=== PATIENT | male | born 1980 | race African-American/Black ===

== ENCOUNTER 2018-03-06 15:53 | Emergency (ER) | payer BC ==
--- NOTE | 2018-03-06 16:23 | EDM.PDOC ---
ED HPI GENERAL MEDICAL PROBLEM - General Chief Complaint: Gastrointestinal Problem Stated Complaint: needs antibotics Time Seen by Provider: 03/06/18 16:22 Source of Information: Reports: Patient History Limitations: Reports: No Limitations - History of Present Illness INITIAL COMMENTS - FREE TEXT/NARRATIVE: HISTORY AND PHYSICAL: History of present illness: Patient is a 37-year-old male here with concern for possible diverticulitis. He states he's had left lower abdominal pain 6 days, states it feels exactly the same as it did when he has had diverticulitis flares in the past. He states he is having small looser bowel movements that are nonbloody. He denies fevers, chills, nausea, vomiting, dysuria, hematuria. He is otherwise healthy and denies any significant past medical history and has no other complaints at this time. Review of systems: As per history of present illness and below otherwise all systems reviewed and negative. Past medical history: As per history of present illness and as reviewed below otherwise noncontributory. Surgical history: As per history of present illness and as reviewed below otherwise noncontributory. Social history: No reported history of drug or alcohol abuse. Family history: As per history of present illness and as reviewed below otherwise noncontributory. Physical exam: General: Patient sitting comfortably in no acute distress and nontoxic appearing HEENT: Atraumatic, normocephalic, pupils reactive, negative for conjunctival pallor or scleral icterus, mucous membranes moist, throat clear, neck supple, nontender, trachea midline. No meningeal signs. Lungs: Clear to auscultation, breath sounds equal bilaterally, chest nontender. Heart: S1S2, regular, negative for clicks, rubs, or overt murmur. Abdomen: LLQ tenderness to palpation without rigidity or guardng. Soft, nondistended. Negative for masses or hepatosplenomegaly. Negative for costovertebral tenderness. Pelvis: Stable nontender. Genitourinary: Deferred. Rectal: Deferred. Extremities: Atraumatic, negative for cords or calf pain. Neurovascular unremarkable. Neuro: Awake, alert, oriented. Cranial nerves II through XII unremarkable. Cerebellum unremarkable. Motor and sensory unremarkable throughout. Exam nonfocal. Notes: Diagnostics: CBC, CMP, UA, CT abdomen/pelvis w/ contrast Therapeutics: 1L Normal Saline IV Prescriptions: Cipro Flagyl Impression: Acute diverticulitis mid descending colon without evidence of abscess. Plan: 1. Take antibiotic as instructed 2. Follow up with primary care provider and general surgery 3. Return to ED as needed as discussed Definitive disposition and diagnosis as appropriate pending reevaluation and review of above. abdominal Pain Score (Numeric/FACES): 7 - Related Data Allergies Allergy/AdvReac Type Severity Reaction Status Date / Time No Known Allergies Allergy Verified 03/06/18 16:21 Home Meds: Home Meds Ciprofloxacin HCl [Cipro] 500 mg PO BID 10 Days #20 tablet 03/06/18 [Rx] metroNIDAZOLE [Flagyl] 500 mg PO TID 10 Days #30 tab 03/06/18 [Rx] Past Medical History Gastrointestinal History: Reports: Celiac Disease, Pancreatitis (chronic), Other (See Below) Other Gastrointestinal History: h/o diverticulitis ', intermittent abd pain, bloody stools Musculoskeletal History: Reports: None, Other (See Below) (h/o back pain extending down left leg- much better since microdiscectomy 10/25) Neurological History: Reports: None - Past Surgical History Head Surgeries/Procedures: Reports: None Neurological Surgical History: Reports: Lumbar Spine Other Neurological Surgeries/Procedures: microdisectomy Musculoskeletal Surgical History: Reports: Other (See Below) Other Musculoskeletal Surgeries/Procedures:: cyst removed from rt index finger Social & Family History - Family History Family Medical History: Unobtainable ED ROS GENERAL - Review of Systems Review Of Systems: ROS reveals no pertinent complaints other than HPI. ED EXAM, GI/ABD - Physical Exam Exam: See Below (see dictation) Course - Vital Signs Last Recorded V/S: Last Vital Signs Temp 97.5 F 03/06/18 16:19 Pulse 93 03/06/18 16:19 Resp 16 03/06/18 16:19 BP 136/93 H 03/06/18 16:19 Pulse Ox 98 03/06/18 16:19 - Orders/Labs/Meds Orders: Active Orders 24 hr Category Date Time Status Sodium Chloride 0.9% [Saline Flush] Med 03/06/18 16:27 Active 10 ml FLUSH ASDIRECTED PRN Sodium Chloride 0.9% [Saline Flush] Med 03/06/18 16:27 Active 2.5 ml FLUSH ASDIRECTED PRN Saline Lock Insert [OM.PC] Stat Oth 03/06/18 16:27 Ordered Medication Orders Sodium Chloride (Saline Flush) 10 ml FLUSH ASDIRECTED PRN PRN Reason: Keep Vein Open Last Admin: 03/06/18 16:41 Dose: 10 ml Sodium Chloride (Saline Flush) 2.5 ml FLUSH ASDIRECTED PRN PRN Reason: Keep Vein Open Last Admin: 03/06/18 16:41 Dose: 2.5 ml Labs: Laboratory Tests 03/06/18 03/06/18 03/06/18 Range/Units 16:30 16:36 16:36 WBC 9.64 (4.0-11.0) K/uL RBC 6.11 H (4.50-5.90) M/uL Hgb 16.8 (13.0-17.0) g/dL Hct 49.0 (38.0-50.0) % MCV 80.2 (80.0-98.0) fL MCH 27.5 (27.0-32.0) pg MCHC 34.3 (31.0-37.0) g/dL RDW Std Deviation 40.8 (28.0-62.0) fl RDW Coeff of Alessandro 14 (11.0-15.0) % Plt Count 191 (150-400) K/uL MPV 9.80 (7.40-12.00) fL Neut % (Auto) 79.7 (48.0-80.0) % Lymph % (Auto) 11.1 L (16.0-40.0) % [place] % (Auto) 8.6 (0.0-15.0) % Eos % (Auto) 0.4 (0.0-7.0) % Baso % (Auto) 0.2 (0.0-1.5) % Neut # (Auto) 7.7 H (1.4-5.7) K/uL Lymph # (Auto) 1.1 (0.6-2.4) K/uL [place] # (Auto) 0.8 (0.0-0.8) K/uL Eos # (Auto) 0.0 (0.0-0.7) K/uL Baso # (Auto) 0.0 (0.0-0.1) K/uL Nucleated RBC % 0.0 /100WBC Nucleated RBCs # 0 K/uL Sodium 141 (136-148) mmol/L Potassium 3.7 (3.5-5.1) mmol/L Chloride 105 (98-107) mmol/L Carbon Dioxide 22.9 (21.0-32.0) mmol/L BUN 23 H (7.0-18.0) mg/dL Creatinine 1.2 (0.8-1.3) mg/dL Est Cr Clr Drug Dosing 92.51 mL/min Estimated GFR (MDRD) > 60.0 ml/min Glucose 116 H (74-106) mg/dL Calcium 9.7 (8.5-10.1) mg/dL Total Bilirubin 0.6 (0.2-1.0) mg/dL AST 25 (15-37) IU/L ALT 68 H (14-63) IU/L Alkaline Phosphatase 51 (46-116) U/L Total Protein 8.5 H (6.4-8.2) g/dL Albumin 4.0 (3.4-5.0) g/dL Globulin 4.5 H (2.6-4.0) g/dL Albumin/Globulin Ratio 0.9 (0.9-1.6) Urine Color YELLOW Urine Appearance CLEAR Urine pH 6.0 (5.0-8.0) Ur Specific [place] 1.020 (1.001-1.035) Urine Protein NEGATIVE (NEGATIVE) mg/dL Urine Glucose (UA) NEGATIVE (NEGATIVE) mg/dL Urine Ketones NEGATIVE (NEGATIVE) mg/dL Urine Occult Blood NEGATIVE (NEGATIVE) Urine Nitrite NEGATIVE (NEGATIVE) Urine Bilirubin NEGATIVE (NEGATIVE) Urine Urobilinogen 0.2 (<2.0) EU/dL Ur Leukocyte Esterase NEGATIVE (NEGATIVE) Meds: Medications Generic Name Dose Route Start Last Admin Trade Name Freq PRN Reason Stop Dose Admin Sodium Chloride 10 ml 03/06/18 16:27 03/06/18 16:41 Saline Flush FLUSH 10 ml ASDIRECTED PRN Administration Keep Vein Open Sodium Chloride 2.5 ml 03/06/18 16:27 03/06/18 16:41 Saline Flush FLUSH 2.5 ml ASDIRECTED PRN Administration Keep Vein Open Discontinued Medications Generic Name Dose Route Start Last Admin Trade Name Freq PRN Reason Stop Dose Admin Sodium Chloride 1,000 mls @ 999 mls/hr 03/06/18 16:27 03/06/18 16:41 Normal Saline IV 03/06/18 17:27 999 mls/hr STAT ONE Administration Iopamidol 100 ml 03/06/18 17:55 03/06/18 17:56 Isovue Multipack-370 (76%) IVPUSH 03/06/18 17:56 100 ml ONETIME ONE Administration Departure - Departure Time of Disposition: 18:46 Disposition: Home, Self-Care 01 Condition: Good Clinical Impression: Diverticulitis - Discharge Information Prescriptions: Ciprofloxacin HCl [Cipro] 500 mg PO BID 10 Days #20 tablet metroNIDAZOLE [Flagyl] 500 mg PO TID 10 Days #30 tab Referrals: PCP,None [Primary Care Provider] - Forms: ED Department Discharge Additional Instructions: The following information is given to patients seen in the emergency department who are being discharged to home. This information is to outline your options for follow-up care. We provide all patients seen in our emergency department with a follow-up referral. The need for follow-up, as well as the timing and circumstances, are variable depending upon the specifics of your emergency department visit. If you don't have a primary care physician on staff, we will provide you with a referral. We always advise you to contact your personal physician following an emergency department visit to inform them of the circumstance of the visit and for follow-up with them and/or the need for any referrals to a consulting specialist. The emergency department will also refer you to a specialist when appropriate. This referral assures that you have the opportunity for follow-up care with a specialist. All of these measure are taken in an effort to provide you with optimal care, which includes your follow-up. Under all circumstances we always encourage you to contact your private physician who remains a resource for coordinating your care. When calling for follow-up care, please make the office aware that this follow-up is from your recent emergency room visit. If for any reason you are refused follow-up, please contact the [facility] Emergency Department at and asked to speak to the emergency department charge nurse. [facility] Primary [facility] [address] [place] [address] [id number] [facility] Specialty Care - General Surgery Professional Building [address] [place] [address], [address] [place] [address] 1. Take antibiotic as instructed 2. Follow up with primary care provider and general surgery 3. Return to ED as needed as discussed - My Orders Last 24 Hours: My Active Orders 03/06/18 16:27 Sodium Chloride 0.9% [Saline Flush] 10 ml FLUSH ASDIRECTED PRN Sodium Chloride 0.9% [Saline Flush] 2.5 ml FLUSH ASDIRECTED PRN Saline Lock Insert [OM.PC] Stat - Assessment/Plan Last 24 Hours: My Active Orders 03/06/18 16:27 Sodium Chloride 0.9% [Saline Flush] 10 ml FLUSH ASDIRECTED PRN Sodium Chloride 0.9% [Saline Flush] 2.5 ml FLUSH ASDIRECTED PRN Saline Lock Insert [OM.PC] Stat
[2018-03-06] MEDS ORDERED: Sodium Chloride 0.9% 2.5 ML Syringe FLUSH PRN (16:27)
[2018-03-06] MEDS ORDERED: Sodium Chloride 0.9% 1,000 ML IV ONE (16:27)
[2018-03-06] MEDS ORDERED: Sodium Chloride 0.9% 10 ML Syringe FLUSH PRN (16:27)
[2018-03-06 17:05] LABS: CHLORIDE,CL 105 mmol/L (98-107); SODIUM,NA 141 mmol/L (136-148)
[2018-03-06] MEDS ORDERED: Iopamidol 755 MG/ML 500 ML Multipack Bottle IVPUSH ONE (17:55)
--- NOTE | 2018-03-06 18:42 | CT ---
INDICATION: Left lower quadrant and mid abdominal pain for 5 days. TECHNIQUE: CT abdomen and pelvis with 100 cc Isovue 370 intravenous contrast. COMPARISON: None FINDINGS: The liver is normal in contour with a subcentimeter hypodensity within the right lobe which is too small for characterization. Statistically speaking, in the absence of a known primary malignancy this would likely represent incidental findings. Gallbladder and biliary tree are normal. At the upper pole of the spleen there is a 7 millimeter hypodensity which is too small for characterization although this likely represents a small cyst. The adrenal glands and pancreas are unremarkable. Duplication anomaly of the right kidney. Sub centimeter hypodensity at the upper pole left kidney which is too small for characterization although likely represents a cyst. No dilated loops of large or small intestine. Moderate colonic diverticulosis. Focal inflammation adjacent to the mid descending colon, possibly centered around a diverticulum. No abscess. Pelvic organs are unremarkable. Discoid atelectasis left lower lobe. IMPRESSION: 1. Acute diverticulitis mid descending colon without evidence of abscess. Please note that all CT scans at this facility use dose modulation, iterative reconstruction, and/or weight-based dosing when appropriate to reduce radiation dose to as low as reasonably achievable. Dictated by Josh Carranza MD @ Mar 06 2018 6:31PM Signed by Dr. Josh Carranza @ Mar 06 2018 6:40PM
== END 2018-03-06 18:57 | disposition home or self-care (01) ==
LOC: MW.ED 15:53
DX: K57.32 Diverticulitis of large intestine without perforation or abscess without bleeding (principal)
CPT/HCPCS: 36415; 74177; 80053; 81003; 85025; 96360; 99284; J7040; Q9967; 99283

== ENCOUNTER 2020-01-15 12:54 | Observation (INO) | payer SELFPAY ==
[2020-01-15] MEDS ORDERED: Sodium Chloride 0.9% 2.5 ML Syringe FLUSH PRN (12:55)
[2020-01-15] MEDS ORDERED: Lactated Ringers 1,000 ML IV ONE (13:32)
[2020-01-15] MEDS ORDERED: Ondansetron 4 MG/2 ML SDV IVPUSH ONE (13:32)
[2020-01-15] MEDS ORDERED: Morphine 4 MG/ML Syringe IVPUSH ONE (13:32)
--- NOTE | 2020-01-15 13:33 | EDM.PDOC ---
ED HPI GENERAL MEDICAL PROBLEM - General Stated Complaint: ABDOMINAL PAIN Time Seen by Provider: 01/15/20 12:55 Source of Information: Reports: Patient History Limitations: Reports: No Limitations - History of Present Illness INITIAL COMMENTS - FREE TEXT/NARRATIVE: 39-year-old male with history of diverticulitis presents with worsening left lower quadrant constant aching pain for 1 week. He denies fever, chills, nausea, vomiting, diarrhea, testicular pain, dysuria, flank pain. He notes her left small bowel movement yesterday. ROS: A 10-point review of systems, other than pertinent positives and negatives as stated per HPI, is otherwise negative Past medical history: No additional pertinent history Past Surgical history: No additional pertinent history Social history: No additional pertinent history Family history: No additional pertinent history PHYSICAL EXAM General: AOx4, GCS = 15, No distress HEENT: dry mucous membrane Neck: supple, no meningismus, no Kernig or Brudzinski Cardiac: S1S2 RRR Respiratory: CTAB, no crackles or rales, no wheezing Abdomen: Soft, mild left lower quadrant tenderness, no rebound or guarding, nondistended, no pulsatile mass. Back: nontender Musculoskeletal: NVI distally, no deformity Neuro: No focal deficits, CN 2 - 12 WNL. Abdominal Pain Score (Numeric/FACES): 6 - Related Data Allergies Allergy/AdvReac Type Severity Reaction Status Date / Time No Known Allergies Allergy Verified 01/15/20 13:45 Home Meds: Home Meds . [No Known Home Meds] 01/15/20 [History] Past Medical History Gastrointestinal History: Reports: Celiac Disease, Pancreatitis (chronic), Other (See Below) Other Gastrointestinal History: h/o diverticulitis ', intermittent abd pain, bloody stools Musculoskeletal History: Reports: None, Other (See Below) (h/o back pain extending down left leg- much better since microdiscectomy 10/25) Neurological History: Reports: None - Past Surgical History Head Surgeries/Procedures: Reports: None Neurological Surgical History: Reports: Lumbar Spine Other Neurological Surgeries/Procedures: microdisectomy Musculoskeletal Surgical History: Reports: Other (See Below) Other Musculoskeletal Surgeries/Procedures:: cyst removed from rt index finger Social & Family History - Family History Family Medical History: Unobtainable ED ROS GENERAL - Review of Systems Review Of Systems: See Below (see dictation) ED EXAM, GI/ABD - Physical Exam Exam: See Below (see dictation) Course - Vital Signs Last Recorded V/S: Last Vital Signs Temp 97.3 F 01/15/20 13:45 Pulse 99 01/15/20 13:45 Resp 16 01/15/20 13:45 BP 151/99 H 01/15/20 13:45 Pulse Ox 99 01/15/20 13:45 - Orders/Labs/Meds Orders: Active Orders 24 hr Category Date Time Status Patient Status [ADT] Routine ADT 01/15/20 16:56 Ordered Oxygen Therapy [RC] PRN Care 01/15/20 16:50 Ordered VTE/DVT Education [RC] PER UNIT ROUTINE Care 01/15/20 16:50 Ordered ANTITHROMBIN ACTIVITY [REF] Stat Lab 01/15/20 16:53 Ordered CORONAVIRUS COVID-19 SOFIYA [MOLEC] Stat Lab 01/15/20 16:28 Ordered FACTOR V LEIDEN MUTATION [REF] Stat Lab 01/15/20 16:49 Ordered PROTEIN C-FUNCTIONAL [REF] Stat Lab 01/15/20 16:49 Ordered PROTEIN S-FUNCTIONAL [REF] Stat Lab 01/15/20 16:49 Ordered Heparin Sodium Med 01/15/20 16:57 Once 5,000 units IVPUSH ONETIME ONE Heparin Sodium/0.45% NaCl [Heparin 25,000 Units in 1/2 Med 01/15/20 17:00 Ordered NS 500 ML] 500 ml IV TITRATE Sodium Chloride 0.9% [Saline Flush] Med 01/15/20 12:55 Active 10 ml FLUSH ASDIRECTED PRN Sodium Chloride 0.9% [Saline Flush] Med 01/15/20 12:55 Active 2.5 ml FLUSH ASDIRECTED PRN Saline Lock Insert [OM.PC] Stat Oth 01/15/20 12:55 Ordered Resuscitation Status Routine Resus Stat 01/15/20 16:50 Ordered Medication Orders Heparin Sodium (Porcine) (Heparin Sodium) 5,000 units IVPUSH ONETIME ONE Stop: 01/15/20 16:58 Heparin Sodium/Sodium Chloride (Heparin 25,000 Units In 1/2 Ns 500 Ml) 500 mls @ 35.108 mls/hr IV TITRATE NAFISA; Protocol Sodium Chloride (Saline Flush) 10 ml FLUSH ASDIRECTED PRN PRN Reason: Keep Vein Open Last Admin: 01/15/20 14:24 Dose: 10 ml Documented by: Admin: 01/15/20 14:23 Dose: 10 ml Documented by: JANE Sodium Chloride (Saline Flush) 2.5 ml FLUSH ASDIRECTED PRN PRN Reason: Keep Vein Open Labs: Laboratory Tests 01/15/20 01/15/20 01/15/20 Range/Units 13:37 13:37 13:37 WBC 8.89 (4.0-11.0) K/uL RBC 6.37 H (4.50-5.90) M/uL Hgb 17.0 (13.0-17.0) g/dL Hct 50.0 (38.0-50.0) % MCV 78.5 L (80.0-98.0) fL MCH 26.7 L (27.0-32.0) pg MCHC 34.0 (31.0-37.0) g/dL RDW Std Deviation 37.7 (28.0-62.0) fl RDW Coeff of Alessandro 13 (11.0-15.0) % Plt Count 154 (150-400) K/uL MPV 10.00 (7.40-12.00) fL Neut % (Auto) 74.5 (48.0-80.0) % Lymph % (Auto) 13.9 L (16.0-40.0) % [place] % (Auto) 11.1 (0.0-15.0) % Eos % (Auto) 0.3 (0.0-7.0) % Baso % (Auto) 0.2 (0.0-1.5) % Neut # (Auto) 6.6 H (1.4-5.7) K/uL Lymph # (Auto) 1.2 (0.6-2.4) K/uL [place] # (Auto) 1.0 H (0.0-0.8) K/uL Eos # (Auto) 0.0 (0.0-0.7) K/uL Baso # (Auto) 0.0 (0.0-0.1) K/uL Nucleated RBC % 0.0 /100WBC Nucleated RBCs # 0 K/uL INR 1.08 Lactate (0.20-2.00) mmol/L Sodium 139 (136-148) mmol/L Potassium 3.4 L (3.5-5.1) mmol/L Chloride 105 (98-107) mmol/L Carbon Dioxide 22.9 (21.0-32.0) mmol/L BUN 11 (7.0-18.0) mg/dL Creatinine 1.0 (0.8-1.3) mg/dL Est Cr Clr Drug Dosing 108.86 mL/min Estimated GFR (MDRD) > 60.0 ml/min Glucose 100 (74-106) mg/dL Calcium 9.4 (8.5-10.1) mg/dL Total Bilirubin 0.7 (0.2-1.0) mg/dL AST 20 (15-37) IU/L ALT 40 (14-63) IU/L Alkaline Phosphatase 68 (46-116) U/L Total Protein 8.2 (6.4-8.2) g/dL Albumin 3.5 (3.4-5.0) g/dL Globulin 4.7 H (2.6-4.0) g/dL Albumin/Globulin Ratio 0.7 L (0.9-1.6) Lipase 94 (73-393) U/L Urine Color Urine Appearance Urine pH (5.0-8.0) Ur Specific [place] (1.001-1.035) Urine Protein (NEGATIVE) mg/dL Urine Glucose (UA) (NEGATIVE) mg/dL Urine Ketones (NEGATIVE) mg/dL Urine Occult Blood (NEGATIVE) Urine Nitrite (NEGATIVE) Urine Bilirubin (NEGATIVE) Urine Urobilinogen (<2.0) EU/dL Ur Leukocyte Esterase (NEGATIVE) 01/15/20 01/15/20 Range/Units 14:28 16:40 WBC (4.0-11.0) K/uL RBC (4.50-5.90) M/uL Hgb (13.0-17.0) g/dL Hct (38.0-50.0) % MCV (80.0-98.0) fL MCH (27.0-32.0) pg MCHC (31.0-37.0) g/dL RDW Std Deviation (28.0-62.0) fl RDW Coeff of Alessandro (11.0-15.0) % Plt Count (150-400) K/uL MPV (7.40-12.00) fL Neut % (Auto) (48.0-80.0) % Lymph % (Auto) (16.0-40.0) % [place] % (Auto) (0.0-15.0) % Eos % (Auto) (0.0-7.0) % Baso % (Auto) (0.0-1.5) % Neut # (Auto) (1.4-5.7) K/uL Lymph # (Auto) (0.6-2.4) K/uL [place] # (Auto) (0.0-0.8) K/uL Eos # (Auto) (0.0-0.7) K/uL Baso # (Auto) (0.0-0.1) K/uL Nucleated RBC % /100WBC Nucleated RBCs # K/uL INR Lactate 1.4 (0.20-2.00) mmol/L Sodium (136-148) mmol/L Potassium (3.5-5.1) mmol/L Chloride (98-107) mmol/L Carbon Dioxide (21.0-32.0) mmol/L BUN (7.0-18.0) mg/dL Creatinine (0.8-1.3) mg/dL Est Cr Clr Drug Dosing mL/min Estimated GFR (MDRD) ml/min Glucose (74-106) mg/dL Calcium (8.5-10.1) mg/dL Total Bilirubin (0.2-1.0) mg/dL AST (15-37) IU/L ALT (14-63) IU/L Alkaline Phosphatase (46-116) U/L Total Protein (6.4-8.2) g/dL Albumin (3.4-5.0) g/dL Globulin (2.6-4.0) g/dL Albumin/Globulin Ratio (0.9-1.6) Lipase (73-393) U/L Urine Color YELLOW Urine Appearance CLEAR Urine pH 6.0 (5.0-8.0) Ur Specific [place] 1.025 (1.001-1.035) Urine Protein NEGATIVE (NEGATIVE) mg/dL Urine Glucose (UA) NEGATIVE (NEGATIVE) mg/dL Urine Ketones TRACE H (NEGATIVE) mg/dL Urine Occult Blood NEGATIVE (NEGATIVE) Urine Nitrite NEGATIVE (NEGATIVE) Urine Bilirubin NEGATIVE (NEGATIVE) Urine Urobilinogen 1.0 (<2.0) EU/dL Ur Leukocyte Esterase NEGATIVE (NEGATIVE) Meds: Medications Generic Name Dose Route Start Last Admin Trade Name Freq PRN Reason Stop Dose Admin Heparin Sodium (Porcine) 5,000 units 01/15/20 16:57 Heparin Sodium IVPUSH 01/15/20 16:58 ONETIME ONE Heparin Sodium/Sodium Chloride 500 mls @ 35.108 mls/hr 01/15/20 17:00 Heparin 25,000 Units In 1/2 Ns 500 Ml IV TITRATE NAFISA Protocol 18 UNITS/KG/HR Sodium Chloride 10 ml 01/15/20 12:55 01/15/20 14:24 Saline Flush FLUSH 10 ml ASDIRECTED PRN Administration Keep Vein Open Sodium Chloride 2.5 ml 01/15/20 12:55 Saline Flush FLUSH ASDIRECTED PRN Keep Vein Open Discontinued Medications Generic Name Dose Route Start Last Admin Trade Name Freq PRN Reason Stop Dose Admin Lactated Ringer's 1,000 mls @ 999 mls/hr 01/15/20 13:32 01/15/20 14:23 Ringers, Lactated IV 01/15/20 14:32 999 mls/hr .BOLUS ONE Administration Iopamidol 100 ml 01/15/20 15:03 01/15/20 15:04 Isovue Multipack-370 (76%) IVPUSH 01/15/20 15:04 100 ml ONETIME STA Administration Morphine Sulfate 4 mg 01/15/20 13:32 01/15/20 14:19 Morphine IVPUSH 01/15/20 13:33 4 mg ONETIME ONE Administration Ondansetron HCl 4 mg 01/15/20 13:32 01/15/20 14:17 Zofran IVPUSH 01/15/20 13:33 4 mg ONETIME ONE Administration - Re-Assessments/Exams Free Text/Narrative Re-Assessment/Exam: 01/15/20 16:[address] Gisbon, who agrees to admit patient. The hospitalist's documentation supersedes all other documentation on this patient with regard to any conflicts or discrepancies from this point forward. Any emergency conditions have been treated to the ability of the ED prior to admission. Departure - Departure Time of Disposition: 16:58 Disposition: Refer to Observation Condition: Good Clinical Impression: Portal vein thrombosis - Discharge Information *PRESCRIPTION DRUG MONITORING PROGRAM REVIEWED*: Not Applicable *COPY OF PRESCRIPTION DRUG MONITORING REPORT IN PATIENT VIGNESH: Not Applicable Instructions: Portal Vein Thrombosis Referrals: PCP,None [Primary Care Provider] - Sepsis Event Note (ED) - Focused Exam Vital Signs: Vital Signs Temp Pulse Resp BP Pulse Ox 01/15/20 13:45 97.3 F 99 16 151/99 H 99 - My Orders Last 24 Hours: My Active Orders 01/15/20 12:55 Sodium Chloride 0.9% [Saline Flush] 10 ml FLUSH ASDIRECTED PRN Sodium Chloride 0.9% [Saline Flush] 2.5 ml FLUSH ASDIRECTED PRN Saline Lock Insert [OM.PC] Stat 01/15/20 16:28 CORONAVIRUS COVID-19 SOFIYA [MOLEC] Stat 01/15/20 16:49 FACTOR V LEIDEN MUTATION [REF] Stat PROTEIN C-FUNCTIONAL [REF] Stat PROTEIN S-FUNCTIONAL [REF] Stat 01/15/20 16:50 Oxygen Therapy [RC] PRN VTE/DVT Education [RC] PER UNIT ROUTINE Resuscitation Status Routine 01/15/20 16:56 Patient Status [ADT] Routine 01/15/20 16:57 Heparin Sodium 5,000 units IVPUSH ONETIME ONE 01/15/20 17:00 Heparin Sodium/0.45% NaCl [Heparin 25,000 Units in 1/2 NS 500 ML] 500 ml IV TITRATE - Assessment/Plan Last 24 Hours: My Active Orders 01/15/20 12:55 Sodium Chloride 0.9% [Saline Flush] 10 ml FLUSH ASDIRECTED PRN Sodium Chloride 0.9% [Saline Flush] 2.5 ml FLUSH ASDIRECTED PRN Saline Lock Insert [OM.PC] Stat 01/15/20 16:28 CORONAVIRUS COVID-19 SOFIYA [MOLEC] Stat 01/15/20 16:49 FACTOR V LEIDEN MUTATION [REF] Stat PROTEIN C-FUNCTIONAL [REF] Stat PROTEIN S-FUNCTIONAL [REF] Stat 01/15/20 16:50 Oxygen Therapy [RC] PRN VTE/DVT Education [RC] PER UNIT ROUTINE Resuscitation Status Routine 01/15/20 16:56 Patient Status [ADT] Routine 01/15/20 16:57 Heparin Sodium 5,000 units IVPUSH ONETIME ONE 01/15/20 17:00 Heparin Sodium/0.45% NaCl [Heparin 25,000 Units in 1/2 NS 500 ML] 500 ml IV TITRATE
[2020-01-15] MEDS: Sodium Chloride 0.9% 10 ML Syringe FLUSH PRN ×3 (14:23→18:10)
[2020-01-15 14:26] LABS: BLOOD UREA NITROGEN,BUN 11 mg/dL (7.0-18.0); CARBON DIOXIDE,CO2 22.9 mmol/L (21.0-32.0); CHLORIDE,CL 105 mmol/L (98-107); GLUCOSE RANDOM 100 mg/dL (74-106); LIPASE 94 U/L (73-393); POTASSIUM,K 3.4 mmol/L (3.5-5.1); SODIUM,NA 139 mmol/L (136-148)
[2020-01-15] MEDS ORDERED: Iopamidol 755 MG/ML 500 ML Multipack Bottle IVPUSH STA (15:03)
--- NOTE | 2020-01-15 16:23 | CT ---
Indication: Abdominal pain left lower quadrant pain history of diverticulitis Technique: Volumetric multidetector CT images of the abdomen and pelvis were obtained after the administration of intravenous contrast. 100 cc Isovue 370 Comparison: CT abdomen and pelvis March 06, 2018 Findings: The lung bases are clear. The liver is mildly enlarged with hepatic steatosis. The portal vein demonstrates extensive portal venous thrombosis within the main portal vein and predominantly in the superior mesenteric vein. There is additional thrombosis of the splenic vein. The gallbladder is unremarkable without evidence of radiopaque calculus. There is no significant common biliary ductal dilatation or abrupt cut off. The spleen is normal in enhancement and size. The stomach and duodenum are grossly unremarkable. The pancreas is normal in enhancement without significant atrophy. The adrenal glands are unremarkable. The kidneys demonstrate preserved corticomedullary differentiation without evidence of obstructive uropathy. There is a [id number] amount of stool seen throughout the colon with colonic diverticulosis without definite evidence of diverticulitis. The appendix is unremarkable. There is mild central mesenteric edema without evidence of significant mesenteric pelvic sidewall or epigastric adenopathy. The aorta is nonaneurysmal. There is no significant atherosclerotic disease appreciated. The solid pelvic viscera are grossly unremarkable. There is no free fluid or free air. The anterior abdominal wall is intact without significant hernias. The lumbar vertebral body heights again demonstrate endplate Schmorl`s defect of the inferior L5 vertebral body otherwise the vertebral body heights are maintained in satisfactory alignment. Impression: Incidental note is made of extensive portal venous thrombosis predominantly within the main portal vein, superior mesenteric and splenic veins with moderate central mesenteric edema. There is no definite evidence of diverticulitis with redemonstration of distal colonic diverticula. Persistent hepatomegaly and hepatic steatosis. Please note that all CT scans at this facility use dose modulation, iterative reconstruction, and/or weight-based dosing when appropriate to reduce radiation dose to as low as reasonably achievable. Dictated by Julio Cesar Natarajan MD @ Jan 15 2020 3:58PM Signed by Dr. Julio Cesar Natarajan @ Jan 15 2020 4:22PM
[2020-01-15] MEDS ORDERED: Heparin Sodium 5,000 Units/ML Vial IVPUSH ONE (16:57)
[2020-01-15] MEDS: Heparin Sodium/0.45% NaCl 500 ML IV SCH (18:08)
[2020-01-15] MEDS ORDERED: Acetaminophen 325 MG Tab PO PRN (19:48)
[2020-01-15] MEDS ORDERED: Ondansetron 4 MG/2 ML SDV IVPUSH PRN (19:48)
[2020-01-15] MEDS ORDERED: Morphine 2 MG/ML SYRINGE IVPUSH PRN (19:55)
[2020-01-15] MEDS ORDERED: Potassium Chloride 10% 20 MEQ/15 ML Soln 30 ML UD Cup PO ONE (20:00)
--- NOTE | 2020-01-15 20:08 | PCM.HP.2 ---
H&P History of Present Illness - General Date of Service: 01/15/20 Admit Problem/Dx: Admission Diagnosis/Problem Admission Diagnosis/Problem Portal vein thrombosis - History of Present Illness Initial Comments - Free Text/Narative: 39-year-old male with history of diverticulitis presents with worsening left lower quadrant constant aching pain for 1 week. NO associated, fever, chills, diarrhea, N/V. Pain is dull and achy, and unlike his pain from diverticulitis. Patient underwent CT scan of abdomen which showed significant extensive portal venous thrombosis predominantly within portal vein, SMV, and splenic vein with come moderate central mesenteric edema. Patient denies fever, chills, nausea, vomiting, diarrhea, testicular pain, dysuria, flank pain. He states he has a small bowel movement yesterday, which was nonbloody. Patient was presented to me, i requested surgery consult due to extensive clot burden and possible bowel involvement. Surgery saw the patient and recommended IR consult vs transfer, IR was consulted, they reviewed the images and recommenced systemic anticoagulation with heparin gtt and repeat CT scan in 3 days. Patient was covid positive, no respiratory symptoms. Patient was admitted for further management. Abdominal Pain Score (Numeric/FACES): 6 - Related Data Allergies/Adverse Reactions: Allergies Allergy/AdvReac Type Severity Reaction Status Date / Time No Known Allergies Allergy Verified 01/15/20 13:45 Home Medications: Home Meds . [No Known Home Meds] 01/15/20 [History] Past Medical History Gastrointestinal History: Reports: Celiac Disease, Pancreatitis, Other (See Below) Other Gastrointestinal History: h/o diverticulitis '09, intermittent abd pain, bloody stools Musculoskeletal History: Reports: None, Other (See Below) Neurological History: Reports: None - Infectious Disease History Infectious Disease History: Reports: None - Past Surgical History Head Surgeries/Procedures: Reports: None Neurological Surgical History: Reports: Lumbar Spine Other Neurological Surgeries/Procedures: microdisectomy Musculoskeletal Surgical History: Reports: Other (See Below) Other Musculoskeletal Surgeries/Procedures:: cyst removed from rt index finger Social & Family History - Family History Family Medical History: Unobtainable - Tobacco Use Tobacco Use Status *Q: Never Tobacco User Second Hand Smoke Exposure: Yes - Caffeine Use Caffeine Use: Reports: Coffee - Recreational Drug Use Recreational Drug Use: No H&P Review of Systems - Review of Systems: Review Of Systems: See Below General: Denies: Fever, Chills, Malaise HEENT: Denies: Contact Lenses, Dysphasia Pulmonary: Denies: Shortness of Breath, Wheezing Cardiovascular: Denies: Chest Pain, Palpitations, Dyspnea on Exertion Gastrointestinal: Reports: Abdominal Pain. Denies: Anorexia, Black Stool, Bloody Stool, Constipation, Diarrhea, Decreased Appetite, Distension, Flatus, Hematemesis, Melena, Nausea, Vomiting Genitourinary: Denies: Dysuria, Frequency, Burning Musculoskeletal: Denies: Neck Pain, Shoulder Pain, Arm Pain Skin: Denies: Cyanosis, Jaundice, Mottled Psychiatric: Denies: Confusion, Depression Neurological: Denies: Confusion, Dizziness, Headache Hematologic/Lymphatic: Denies: Anemia, Easy Bleeding, Easy Bruising Exam - Exam Exam: See Below - Vital Signs Vital Signs: Last Vital Signs Temp 36.3 C 01/15/20 13:45 Pulse 79 01/15/20 17:46 Resp 16 01/15/20 13:45 BP 140/117 H 01/15/20 18:21 Pulse Ox 99 01/15/20 17:46 Weight: 97.522 kg - Exam Quality Assessment: No: Supplemental Oxygen General: Alert, Oriented, Cooperative Neck: Supple, Trachea Midline Lungs: Clear to Auscultation, Normal Respiratory Effort Cardiovascular: Regular Rate, Regular Rhythm, Normal S1, Normal S2 GI/Abdominal Exam: Normal Bowel Sounds, Soft, Tender. No: Hepatomegaly, Splenomegaly - Patient Data Lab Results Last 24 hrs: Laboratory Results - last 24 hr 01/15/20 01/15/20 01/15/20 Range/Units 13:37 13:37 13:37 WBC 8.89 (4.0-11.0) K/uL RBC 6.37 H (4.50-5.90) M/uL Hgb 17.0 (13.0-17.0) g/dL Hct 50.0 (38.0-50.0) % MCV 78.5 L (80.0-98.0) fL MCH 26.7 L (27.0-32.0) pg MCHC 34.0 (31.0-37.0) g/dL RDW Std Deviation 37.7 (28.0-62.0) fl RDW Coeff of Alessandro 13 (11.0-15.0) % Plt Count 154 (150-400) K/uL MPV 10.00 (7.40-12.00) fL Neut % (Auto) 74.5 (48.0-80.0) % Lymph % (Auto) 13.9 L (16.0-40.0) % Desha % (Auto) 11.1 (0.0-15.0) % Eos % (Auto) 0.3 (0.0-7.0) % Baso % (Auto) 0.2 (0.0-1.5) % Neut # (Auto) 6.6 H (1.4-5.7) K/uL Lymph # (Auto) 1.2 (0.6-2.4) K/uL Desha # (Auto) 1.0 H (0.0-0.8) K/uL Eos # (Auto) 0.0 (0.0-0.7) K/uL Baso # (Auto) 0.0 (0.0-0.1) K/uL Nucleated RBC % 0.0 /100WBC Nucleated RBCs # 0 K/uL INR 1.08 Lactate (0.20-2.00) mmol/L Sodium 139 (136-148) mmol/L Potassium 3.4 L (3.5-5.1) mmol/L Chloride 105 (98-107) mmol/L Carbon Dioxide 22.9 (21.0-32.0) mmol/L BUN 11 (7.0-18.0) mg/dL Creatinine 1.0 (0.8-1.3) mg/dL Est Cr Clr Drug Dosing 108.86 mL/min Estimated GFR (MDRD) > 60.0 ml/min Glucose 100 (74-106) mg/dL Calcium 9.4 (8.5-10.1) mg/dL Total Bilirubin 0.7 (0.2-1.0) mg/dL AST 20 (15-37) IU/L ALT 40 (14-63) IU/L Alkaline Phosphatase 68 (46-116) U/L Total Protein 8.2 (6.4-8.2) g/dL Albumin 3.5 (3.4-5.0) g/dL Globulin 4.7 H (2.6-4.0) g/dL Albumin/Globulin Ratio 0.7 L (0.9-1.6) Lipase 94 (73-393) U/L Urine Color Urine Appearance Urine pH (5.0-8.0) Ur Specific [place] (1.001-1.035) Urine Protein (NEGATIVE) mg/dL Urine Glucose (UA) (NEGATIVE) mg/dL Urine Ketones (NEGATIVE) mg/dL Urine Occult Blood (NEGATIVE) Urine Nitrite (NEGATIVE) Urine Bilirubin (NEGATIVE) Urine Urobilinogen (<2.0) EU/dL Ur Leukocyte Esterase (NEGATIVE) SARS-CoV-2 RNA (SOFIYA) (NEGATIVE) 01/15/20 01/15/20 01/15/20 Range/Units 14:28 16:40 17:03 WBC (4.0-11.0) K/uL RBC (4.50-5.90) M/uL Hgb (13.0-17.0) g/dL Hct (38.0-50.0) % MCV (80.0-98.0) fL MCH (27.0-32.0) pg MCHC (31.0-37.0) g/dL RDW Std Deviation (28.0-62.0) fl RDW Coeff of Alessandro (11.0-15.0) % Plt Count (150-400) K/uL MPV (7.40-12.00) fL Neut % (Auto) (48.0-80.0) % Lymph % (Auto) (16.0-40.0) % Desha % (Auto) (0.0-15.0) % Eos % (Auto) (0.0-7.0) % Baso % (Auto) (0.0-1.5) % Neut # (Auto) (1.4-5.7) K/uL Lymph # (Auto) (0.6-2.4) K/uL Desha # (Auto) (0.0-0.8) K/uL Eos # (Auto) (0.0-0.7) K/uL Baso # (Auto) (0.0-0.1) K/uL Nucleated RBC % /100WBC Nucleated RBCs # K/uL INR Lactate 1.4 (0.20-2.00) mmol/L Sodium (136-148) mmol/L Potassium (3.5-5.1) mmol/L Chloride (98-107) mmol/L Carbon Dioxide (21.0-32.0) mmol/L BUN (7.0-18.0) mg/dL Creatinine (0.8-1.3) mg/dL Est Cr Clr Drug Dosing mL/min Estimated GFR (MDRD) ml/min Glucose (74-106) mg/dL Calcium (8.5-10.1) mg/dL Total Bilirubin (0.2-1.0) mg/dL AST (15-37) IU/L ALT (14-63) IU/L Alkaline Phosphatase (46-116) U/L Total Protein (6.4-8.2) g/dL Albumin (3.4-5.0) g/dL Globulin (2.6-4.0) g/dL Albumin/Globulin Ratio (0.9-1.6) Lipase (73-393) U/L Urine Color YELLOW Urine Appearance CLEAR Urine pH 6.0 (5.0-8.0) Ur Specific [place] 1.025 (1.001-1.035) Urine Protein NEGATIVE (NEGATIVE) mg/dL Urine Glucose (UA) NEGATIVE (NEGATIVE) mg/dL Urine Ketones TRACE H (NEGATIVE) mg/dL Urine Occult Blood NEGATIVE (NEGATIVE) Urine Nitrite NEGATIVE (NEGATIVE) Urine Bilirubin NEGATIVE (NEGATIVE) Urine Urobilinogen 1.0 (<2.0) EU/dL Ur Leukocyte Esterase NEGATIVE (NEGATIVE) SARS-CoV-2 RNA (SOFIYA) POSITIVE H (NEGATIVE) Result Diagrams: 01/15/20 13:37 01/15/20 13:37 Sepsis Event Note - Evaluation Sepsis Screening Result: No Definite Risk - Focused Exam Vital Signs: Vital Signs Temp Pulse Resp BP Pulse Ox 01/15/20 18:21 140/117 H 01/15/20 17:46 79 127/79 99 01/15/20 16:46 80 129/86 98 01/15/20 16:16 78 138/84 99 01/15/20 15:58 79 127/67 97 01/15/20 15:16 86 143/100 H 98 01/15/20 14:46 77 135/82 97 01/15/20 13:45 36.3 C 99 16 151/99 H 99 - Problem List (1) COVID-19 SNOMED Code(s): 630208184 ICD Code: U07.1 - COVID-19 Status: Acute Current Visit: Yes (2) Portal vein thrombosis SNOMED Code(s): 11055960 ICD Code: I81 - PORTAL VEIN THROMBOSIS Status: Acute Current Visit: Yes (3) Abdominal pain SNOMED Code(s): 61212039 ICD Code: R10.9 - UNSPECIFIED ABDOMINAL PAIN Status: Acute Current Visit: Yes Problem List Initiated/Reviewed/Updated: Yes Orders Last 24hrs: Active Orders 24 hr Category Date Time Status Patient Status [ADT] Routine ADT 01/15/20 16:56 Active Ambulate [RC] ASDIRECTED Care 01/15/20 19:48 Active Antiembolic Devices [RC] PER UNIT ROUTINE Care 01/15/20 19:50 Active Oxygen Therapy [RC] PRN Care 01/15/20 16:50 Active Oxygen Therapy [RC] PRN Care 01/15/20 19:49 Active Pulse Oximetry [RC] PRN Care 01/15/20 19:49 Active VTE/DVT Education [RC] PER UNIT ROUTINE Care 01/15/20 16:50 Active VTE/DVT Education [RC] PER UNIT ROUTINE Care 01/15/20 19:49 Active Vital Signs [RC] Q4H Care 01/15/20 19:49 Active Regular Diet [DIET] Diet 01/15/20 Dinner Active ANTITHROMBIN ACTIVITY [REF] Stat Lab 01/15/20 17:15 Received BMP [BASIC METABOLIC PANEL,BMP] [CHEM] AM Lab 01/16/20 05:11 Ordered CBC WITH AUTO DIFF [HEME] AM Lab 01/16/20 05:11 Ordered FACTOR V LEIDEN MUTATION [REF] Stat Lab 01/15/20 17:15 Received GLYCOSYLATED HEMOGLOBIN,HGBA1C [CHEM] Routine Lab 01/15/20 16:40 Received LIPID PANEL [CHEM] AM Lab 01/16/20 05:11 Ordered MAGNESIUM [CHEM] AM Lab 01/16/20 05:11 Ordered PHOSPHORUS [CHEM] AM Lab 01/16/20 05:11 Ordered PROTEIN C-FUNCTIONAL [REF] Stat Lab 01/15/20 17:15 Received PROTEIN S-FUNCTIONAL [REF] Stat Lab 01/15/20 17:15 Received TSH [CHEM] Routine Lab 01/15/20 16:40 Received Acetaminophen [TylenoL] Med 01/15/20 19:48 Active 650 mg PO Q4H PRN Heparin Sodium/0.45% NaCl [Heparin 25,000 Units in 1/2 Med 01/15/20 17:00 Active NS 500 ML] 500 ml IV TITRATE Lactated Ringers [Ringers, Lactated] 1,000 ml Med 01/15/20 20:00 Active IV ASDIRECTED Morphine Med 01/15/20 19:55 Active 1 mg IVPUSH Q4H PRN Ondansetron [Zofran] Med 01/15/20 19:48 Active 4 mg IVPUSH Q4H PRN Sodium Chloride 0.9% [Saline Flush] Med 01/15/20 12:55 Active 10 ml FLUSH ASDIRECTED PRN Sodium Chloride 0.9% [Saline Flush] Med 01/15/20 12:55 Active 2.5 ml FLUSH ASDIRECTED PRN Saline Lock Insert [OM.PC] Stat Oth 01/15/20 12:55 Ordered Sequential Compression Device [OM.PC] Per Unit Routine Oth 01/15/20 19:49 Ordered Resuscitation Status Routine Resus Stat 01/15/20 16:50 Ordered Medication Orders Acetaminophen (Tylenol) 650 mg PO Q4H PRN PRN Reason: Pain (Mild 1-3)/fever Heparin Sodium/Sodium Chloride (Heparin 25,000 Units In 1/2 Ns 500 Ml) 500 mls @ 35.108 mls/hr IV TITRATE NAFISA; Protocol Last Admin: 01/15/20 18:08 Dose: 18 units/kg/hr, 35.108 mls/hr Documented by: MIKE Cosigned by: [id number] Lactated Ringer's (Ringers, Lactated) 1,000 mls @ 125 mls/hr IV ASDIRECTED NAFISA Morphine Sulfate (Morphine) 1 mg IVPUSH Q4H PRN PRN Reason: Pain Ondansetron HCl (Zofran) 4 mg IVPUSH Q4H PRN PRN Reason: Nausea/Vomiting Sodium Chloride (Saline Flush) 10 ml FLUSH ASDIRECTED PRN PRN Reason: Keep Vein Open Last Admin: 01/15/20 18:10 Dose: 10 ml Documented by: Admin: 01/15/20 14:24 Dose: 10 ml Documented by: Admin: 01/15/20 14:23 Dose: 10 ml Documented by: JANE Sodium Chloride (Saline Flush) 2.5 ml FLUSH ASDIRECTED PRN PRN Reason: Keep Vein Open Last Admin: 01/15/20 18:10 Dose: 2.5 ml Documented by: MIKE Assessment/Plan Comment:: 39 y/o M admitted for abdominal apin sec to extensive portal venous thrombosis No prior h/o blots Likely secondary to COVID-19 f/u Coagulation disorder work up , it was requested before heparin was started cont heparin gtt Morphine for pain Monitor for worsening abdominal pain, or GI bleeding, has mild nose bleed which has stopped IV PPI Monitor and replete electrolytes Soft diet
[2020-01-15 20:17] LABS: HEMOGLOBIN A1C 5.9 %
[2020-01-15] MEDS: Lactated Ringers 1,000 ML IV SCH (20:56)
[2020-01-16] MEDS ORDERED: LORazepam 2 MG/ML SDV IVPUSH PRN (01:20)
[2020-01-16] MEDS: Pantoprazole 40 MG in Sodium Chloride 0.9% 10 ML IV SCH ×2 (01:44→23:11)
[2020-01-16 05:36] LABS: BLOOD UREA NITROGEN,BUN 9 mg/dL (7.0-18.0); CARBON DIOXIDE,CO2 24.7 mmol/L (21.0-32.0); CHLORIDE,CL 105 mmol/L (98-107); GLUCOSE RANDOM 108 mg/dL (74-106); POTASSIUM,K 3.5 mmol/L (3.5-5.1); SODIUM,NA 139 mmol/L (136-148)
--- NOTE | 2020-01-16 07:56 | CONS ---
DATE OF CONSULTATION: 01/15/2020 DATE OF : 1980 PRIMARY CARE PHYSICIAN: None PCP HISTORY OF PRESENT ILLNESS: The patient is a pleasant 39-year-old gentleman, who says for the past week, he has had some vague left lower abdominal pain, although he says sometimes it may feel more diffuse. He says the pain is more of a discomfort. It just makes it hard to get comfortable than an actual pain. He almost did not come in for it, but it has been going on for a week. He denies any nausea or vomiting, denies any changes to his bowel habits, denies any fevers or chills, and denies shortness of breath, coughing, or wheezing. He did have a CT scan done, which showed extensive portal vein thrombosis within the main portal vein and predominantly in the superior mesenteric vein. Also, there is additional thrombus in the splenic vein with also some mild mesenteric edema. The patient says he does have a history of diverticulitis in the past. He says that pain was similar but a bit different. He thought maybe that was what he was actually having a diverticulitis episode. The CT scan did not show any signs of diverticulitis. The patient also tested positive for COVID. The patient denies any bleeding issues or blood clotting issues and denies any family history or any immunological disorders. PAST MEDICAL HISTORY: History of diverticulitis. CURRENT HOME MEDICATIONS: None. ALLERGIES: No known drug allergies. PAST SURGICAL HISTORY: Lower back surgery. FAMILY HISTORY: Mother with lung cancer. SOCIAL HISTORY: 1. The patient denies any tobacco use. 2. He does smoke marijuana. 3. He does have 1 or 2 beers daily. REVIEW OF SYSTEMS: A complete 12-plus review of systems was done and was negative, except for what is in the HPI. LABORATORIES: White cell count is 8.89, hemoglobin is 17, and platelet count is 154. INR is 1.08. Lactic acid 1.4. Sodium 139, potassium 3.4, chloride 105, BUN 11, creatinine 1, and glucose is 100. Total bilirubin 0.7, AST 20, ALT is 40, and alkaline phosphatase is 68. Again, COVID is positive. IMAGING: As per HPI. PHYSICAL EXAMINATION: GENERAL: The patient is sitting comfortably in his ER bed. He is alert and oriented and in no acute distress. VITAL SIGNS: Temperature is 97.3, pulse is 99, blood pressure is 151/99, and saturating 99% on room air. ABDOMEN: Soft and nondistended. He has some very mild vague tenderness to deep palpation. No rebound. No guarding. NEUROLOGICAL: Grossly, motor is intact. No gross deficits. ASSESSMENT AND PLAN: The patient is a pleasant 39-year-old gentleman, who has thrombosis of his portal vein, mesenteric vein, and splenic vein. He has had some vague abdominal discomfort for the past week. I did talk to the hospitalist, Dr. Gibson. I did tell her he currently does not need any acute surgery. I went over that treatment of this is usually hydration and anticoagulation. However, with the extensiveness of this clot, he potentially might benefit from Interventional Radiology. They might want to consult them to see if they could be any further help. Surgery will continue to follow if the patient is admitted. I again did speak with the emergency room physician and the hospitalist extensively. The patient is also being worked up for other hypercoagulable states, although potentially, the source of blood clot might be his coronavirus disease. CIELO / HITESH /[id number] JANENE
[2020-01-16] MEDS: Heparin Sodium/0.45% NaCl 500 ML IV SCH (08:44)
[2020-01-16] MEDS ORDERED: Heparin Sodium 5,000 Units/ML Vial IVPUSH ONE (11:42)
[2020-01-16] MEDS: Lactated Ringers 1,000 ML IV SCH ×2 (13:25→21:15)
[2020-01-16] MEDS ORDERED: Warfarin 10 MG Tab PO SCH (14:00)
--- NOTE | 2020-01-16 14:30 | PCM.PN ---
<Wilfred Taveras - Last Filed: 01/16/20 14:34> - General Info Date of Service: 01/16/20 Subjective Update: Patient states that he feels fine this morning. Denies any abdominal pain, nausea, vomiting, fever, chills. Patient denies any shortness of breath, chest pain. - Review of Systems General: Denies: Fever, Chills Pulmonary: Denies: Shortness of Breath Cardiovascular: Denies: Chest Pain, Palpitations, Dyspnea on Exertion Gastrointestinal: Denies: Abdominal Pain, Nausea, Vomiting Neurological: Denies: Confusion, Dizziness, Headache - Patient Data Vitals - Most Recent: Last Vital Signs Temp 97.8 F 01/16/20 12:32 Pulse 65 01/16/20 12:32 Resp 18 01/16/20 12:32 BP 139/90 01/16/20 12:32 Pulse Ox 97 01/16/20 12:32 Weight - Most Recent: 86.999 kg I&O - Last 24 Hours: Intake & Output 01/15/20 01/16/20 01/16/20 22:59 06:59 14:59 Intake Total 3160 Balance 3160 Lab Results Last 24 Hours: Laboratory Results - last 24 hr 01/15/20 01/15/20 01/15/20 Range/Units 13:37 14:28 16:40 WBC (4.0-11.0) K/uL RBC (4.50-5.90) M/uL Hgb (13.0-17.0) g/dL Hct (38.0-50.0) % MCV (80.0-98.0) fL MCH (27.0-32.0) pg MCHC (31.0-37.0) g/dL RDW Std Deviation (28.0-62.0) fl RDW Coeff of Alessandro (11.0-15.0) % Plt Count (150-400) K/uL MPV (7.40-12.00) fL Neut % (Auto) (48.0-80.0) % Lymph % (Auto) (16.0-40.0) % [place] % (Auto) (0.0-15.0) % Eos % (Auto) (0.0-7.0) % Baso % (Auto) (0.0-1.5) % Neut # (Auto) (1.4-5.7) K/uL Lymph # (Auto) (0.6-2.4) K/uL [place] # (Auto) (0.0-0.8) K/uL Eos # (Auto) (0.0-0.7) K/uL Baso # (Auto) (0.0-0.1) K/uL Nucleated RBC % /100WBC Nucleated RBCs # K/uL APTT (18.6-31.3) SEC Lactate 1.4 (0.20-2.00) mmol/L Sodium 139 (136-148) mmol/L Potassium 3.4 L (3.5-5.1) mmol/L Chloride 105 (98-107) mmol/L Carbon Dioxide 22.9 (21.0-32.0) mmol/L BUN 11 (7.0-18.0) mg/dL Creatinine 1.0 (0.8-1.3) mg/dL Est Cr Clr Drug Dosing 108.86 mL/min Estimated GFR (MDRD) > 60.0 ml/min Glucose 100 (74-106) mg/dL Calcium 9.4 (8.5-10.1) mg/dL Phosphorus (2.6-4.7) mg/dL Magnesium (1.8-2.4) mg/dL Total Bilirubin 0.7 (0.2-1.0) mg/dL AST 20 (15-37) IU/L ALT 40 (14-63) IU/L Alkaline Phosphatase 68 (46-116) U/L Total Protein 8.2 (6.4-8.2) g/dL Albumin 3.5 (3.4-5.0) g/dL Globulin 4.7 H (2.6-4.0) g/dL Albumin/Globulin Ratio 0.7 L (0.9-1.6) Triglycerides (0-200) mg/dL Cholesterol (50-200) mg/dL LDL Cholesterol, Calc (60-180) mg/dL VLDL Cholesterol (5-55) mg/dL HDL Cholesterol (40-60) mg/dL Cholesterol/HDL Ratio (3.3-6.0) Lipase 94 (73-393) U/L TSH 3rd Generation (0.36-3.74) uIU/mL Urine Color YELLOW Urine Appearance CLEAR Urine pH 6.0 (5.0-8.0) Ur Specific [place] 1.025 (1.001-1.035) Urine Protein NEGATIVE (NEGATIVE) mg/dL Urine Glucose (UA) NEGATIVE (NEGATIVE) mg/dL Urine Ketones TRACE H (NEGATIVE) mg/dL Urine Occult Blood NEGATIVE (NEGATIVE) Urine Nitrite NEGATIVE (NEGATIVE) Urine Bilirubin NEGATIVE (NEGATIVE) Urine Urobilinogen 1.0 (<2.0) EU/dL Ur Leukocyte Esterase NEGATIVE (NEGATIVE) SARS-CoV-2 RNA (SOFIYA) (NEGATIVE) 01/15/20 01/15/20 01/15/20 Range/Units 16:40 17:03 23:05 WBC (4.0-11.0) K/uL RBC (4.50-5.90) M/uL Hgb (13.0-17.0) g/dL Hct (38.0-50.0) % MCV (80.0-98.0) fL MCH (27.0-32.0) pg MCHC (31.0-37.0) g/dL RDW Std Deviation (28.0-62.0) fl RDW Coeff of Alessandro (11.0-15.0) % Plt Count (150-400) K/uL MPV (7.40-12.00) fL Neut % (Auto) (48.0-80.0) % Lymph % (Auto) (16.0-40.0) % [place] % (Auto) (0.0-15.0) % Eos % (Auto) (0.0-7.0) % Baso % (Auto) (0.0-1.5) % Neut # (Auto) (1.4-5.7) K/uL Lymph # (Auto) (0.6-2.4) K/uL [place] # (Auto) (0.0-0.8) K/uL Eos # (Auto) (0.0-0.7) K/uL Baso # (Auto) (0.0-0.1) K/uL Nucleated RBC % /100WBC Nucleated RBCs # K/uL APTT 61.9 H (18.6-31.3) SEC Lactate (0.20-2.00) mmol/L Sodium (136-148) mmol/L Potassium (3.5-5.1) mmol/L Chloride (98-107) mmol/L Carbon Dioxide (21.0-32.0) mmol/L BUN (7.0-18.0) mg/dL Creatinine (0.8-1.3) mg/dL Est Cr Clr Drug Dosing mL/min Estimated GFR (MDRD) ml/min Glucose (74-106) mg/dL Calcium (8.5-10.1) mg/dL Phosphorus (2.6-4.7) mg/dL Magnesium (1.8-2.4) mg/dL Total Bilirubin (0.2-1.0) mg/dL AST (15-37) IU/L ALT (14-63) IU/L Alkaline Phosphatase (46-116) U/L Total Protein (6.4-8.2) g/dL Albumin (3.4-5.0) g/dL Globulin (2.6-4.0) g/dL Albumin/Globulin Ratio (0.9-1.6) Triglycerides (0-200) mg/dL Cholesterol (50-200) mg/dL LDL Cholesterol, Calc (60-180) mg/dL VLDL Cholesterol (5-55) mg/dL HDL Cholesterol (40-60) mg/dL Cholesterol/HDL Ratio (3.3-6.0) Lipase (73-393) U/L TSH 3rd Generation 1.13 (0.36-3.74) uIU/mL Urine Color Urine Appearance Urine pH (5.0-8.0) Ur Specific [place] (1.001-1.035) Urine Protein (NEGATIVE) mg/dL Urine Glucose (UA) (NEGATIVE) mg/dL Urine Ketones (NEGATIVE) mg/dL Urine Occult Blood (NEGATIVE) Urine Nitrite (NEGATIVE) Urine Bilirubin (NEGATIVE) Urine Urobilinogen (<2.0) EU/dL Ur Leukocyte Esterase (NEGATIVE) SARS-CoV-2 RNA (SOFIYA) POSITIVE H (NEGATIVE) 01/16/20 01/16/20 01/16/20 Range/Units 04:08 04:08 04:08 WBC 6.57 (4.0-11.0) K/uL RBC 5.91 H (4.50-5.90) M/uL Hgb 15.7 (13.0-17.0) g/dL Hct 46.0 (38.0-50.0) % MCV 77.8 L (80.0-98.0) fL MCH 26.6 L (27.0-32.0) pg MCHC 34.1 (31.0-37.0) g/dL RDW Std Deviation 37.3 (28.0-62.0) fl RDW Coeff of Alessandro 13 (11.0-15.0) % Plt Count 143 L (150-400) K/uL MPV 9.90 (7.40-12.00) fL Neut % (Auto) 62.1 (48.0-80.0) % Lymph % (Auto) 22.8 (16.0-40.0) % [place] % (Auto) 13.7 (0.0-15.0) % Eos % (Auto) 0.9 (0.0-7.0) % Baso % (Auto) 0.5 (0.0-1.5) % Neut # (Auto) 4.1 (1.4-5.7) K/uL Lymph # (Auto) 1.5 (0.6-2.4) K/uL [place] # (Auto) 0.9 H (0.0-0.8) K/uL Eos # (Auto) 0.1 (0.0-0.7) K/uL Baso # (Auto) 0.0 (0.0-0.1) K/uL Nucleated RBC % 0.0 /100WBC Nucleated RBCs # 0 K/uL APTT 71.3 H (18.6-31.3) SEC Lactate (0.20-2.00) mmol/L Sodium 139 (136-148) mmol/L Potassium 3.5 (3.5-5.1) mmol/L Chloride 105 (98-107) mmol/L Carbon Dioxide 24.7 (21.0-32.0) mmol/L BUN 9 (7.0-18.0) mg/dL Creatinine 0.9 (0.8-1.3) mg/dL Est Cr Clr Drug Dosing 120.95 mL/min Estimated GFR (MDRD) > 60.0 ml/min Glucose 108 H (74-106) mg/dL Calcium 8.6 (8.5-10.1) mg/dL Phosphorus 2.8 (2.6-4.7) mg/dL Magnesium 2.1 (1.8-2.4) mg/dL Total Bilirubin (0.2-1.0) mg/dL AST (15-37) IU/L ALT (14-63) IU/L Alkaline Phosphatase (46-116) U/L Total Protein (6.4-8.2) g/dL Albumin (3.4-5.0) g/dL Globulin (2.6-4.0) g/dL Albumin/Globulin Ratio (0.9-1.6) Triglycerides 72 (0-200) mg/dL Cholesterol 174 (50-200) mg/dL LDL Cholesterol, Calc 108 (60-180) mg/dL VLDL Cholesterol 14 (5-55) mg/dL HDL Cholesterol 52 (40-60) mg/dL Cholesterol/HDL Ratio 3.3 (3.3-6.0) Lipase (73-393) U/L TSH 3rd Generation (0.36-3.74) uIU/mL Urine Color Urine Appearance Urine pH (5.0-8.0) Ur Specific [place] (1.001-1.035) Urine Protein (NEGATIVE) mg/dL Urine Glucose (UA) (NEGATIVE) mg/dL Urine Ketones (NEGATIVE) mg/dL Urine Occult Blood (NEGATIVE) Urine Nitrite (NEGATIVE) Urine Bilirubin (NEGATIVE) Urine Urobilinogen (<2.0) EU/dL Ur Leukocyte Esterase (NEGATIVE) SARS-CoV-2 RNA (SOFIYA) (NEGATIVE) 01/16/20 Range/Units 10:26 WBC (4.0-11.0) K/uL RBC (4.50-5.90) M/uL Hgb (13.0-17.0) g/dL Hct (38.0-50.0) % MCV (80.0-98.0) fL MCH (27.0-32.0) pg MCHC (31.0-37.0) g/dL RDW Std Deviation (28.0-62.0) fl RDW Coeff of Alessandro (11.0-15.0) % Plt Count (150-400) K/uL MPV (7.40-12.00) fL Neut % (Auto) (48.0-80.0) % Lymph % (Auto) (16.0-40.0) % [place] % (Auto) (0.0-15.0) % Eos % (Auto) (0.0-7.0) % Baso % (Auto) (0.0-1.5) % Neut # (Auto) (1.4-5.7) K/uL Lymph # (Auto) (0.6-2.4) K/uL [place] # (Auto) (0.0-0.8) K/uL Eos # (Auto) (0.0-0.7) K/uL Baso # (Auto) (0.0-0.1) K/uL Nucleated RBC % /100WBC Nucleated RBCs # K/uL APTT 47.1 H (18.6-31.3) SEC Lactate (0.20-2.00) mmol/L Sodium (136-148) mmol/L Potassium (3.5-5.1) mmol/L Chloride (98-107) mmol/L Carbon Dioxide (21.0-32.0) mmol/L BUN (7.0-18.0) mg/dL Creatinine (0.8-1.3) mg/dL Est Cr Clr Drug Dosing mL/min Estimated GFR (MDRD) ml/min Glucose (74-106) mg/dL Calcium (8.5-10.1) mg/dL Phosphorus (2.6-4.7) mg/dL Magnesium (1.8-2.4) mg/dL Total Bilirubin (0.2-1.0) mg/dL AST (15-37) IU/L ALT (14-63) IU/L Alkaline Phosphatase (46-116) U/L Total Protein (6.4-8.2) g/dL Albumin (3.4-5.0) g/dL Globulin (2.6-4.0) g/dL Albumin/Globulin Ratio (0.9-1.6) Triglycerides (0-200) mg/dL Cholesterol (50-200) mg/dL LDL Cholesterol, Calc (60-180) mg/dL VLDL Cholesterol (5-55) mg/dL HDL Cholesterol (40-60) mg/dL Cholesterol/HDL Ratio (3.3-6.0) Lipase (73-393) U/L TSH 3rd Generation (0.36-3.74) uIU/mL Urine Color Urine Appearance Urine pH (5.0-8.0) Ur Specific [place] (1.001-1.035) Urine Protein (NEGATIVE) mg/dL Urine Glucose (UA) (NEGATIVE) mg/dL Urine Ketones (NEGATIVE) mg/dL Urine Occult Blood (NEGATIVE) Urine Nitrite (NEGATIVE) Urine Bilirubin (NEGATIVE) Urine Urobilinogen (<2.0) EU/dL Ur Leukocyte Esterase (NEGATIVE) SARS-CoV-2 RNA (SOFIYA) (NEGATIVE) Med Orders - Current: Current Medications Acetaminophen (Tylenol) 650 mg PO Q4H PRN PRN Reason: Pain (Mild 1-3)/fever Heparin Sodium/Sodium Chloride (Heparin 25,000 Units In 1/2 Ns 500 Ml) 500 mls @ 35.108 mls/hr IV TITRATE NAFISA; Protocol Last Titration: 01/16/20 11:59 Dose: 18 units/kg/hr, 35.108 mls/hr Documented by: Lactated Ringer's (Ringers, Lactated) 1,000 mls @ 125 mls/hr IV ASDIRECTED NAFISA Last Admin: 01/16/20 13:25 Dose: 125 mls/hr Documented by: Pantoprazole Sodium 40 mg/ (Sodium Chloride) 10 mls @ 300 mls/hr IV Q24H NAFISA Last Admin: 01/16/20 01:44 Dose: 300 mls/hr Documented by: Lorazepam (Ativan) 1 mg IVPUSH ONETIME PRN PRN Reason: Insomnia Last Admin: 01/16/20 01:44 Dose: 1 mg Documented by: Morphine Sulfate (Morphine) 1 mg IVPUSH Q4H PRN PRN Reason: Pain Last Admin: 01/15/20 21:40 Dose: 1 mg Documented by: Ondansetron HCl (Zofran) 4 mg IVPUSH Q4H PRN PRN Reason: Nausea/Vomiting Last Admin: 01/15/20 22:09 Dose: 4 mg Documented by: Sodium Chloride (Saline Flush) 10 ml FLUSH ASDIRECTED PRN PRN Reason: Keep Vein Open Last Admin: 01/15/20 18:10 Dose: 10 ml Documented by: Sodium Chloride (Saline Flush) 2.5 ml FLUSH ASDIRECTED PRN PRN Reason: Keep Vein Open Last Admin: 01/15/20 18:10 Dose: 2.5 ml Documented by: Warfarin Sodium (Coumadin Ask) 1 each PO DAILY@1400 [facility] Discontinued Medications Heparin Sodium (Porcine) (Heparin Sodium) 5,000 units IVPUSH ONETIME ONE Stop: 01/15/20 16:58 Last Admin: 01/15/20 18:08 Dose: 5,000 units Documented by: Heparin Sodium (Porcine) (Heparin Sodium) 1,500 units IVPUSH .BOLUS ONE Stop: 01/16/20 11:43 Last Admin: 01/16/20 11:56 Dose: 1,500 units Documented by: Lactated Ringer's (Ringers, Lactated) 1,000 mls @ 999 mls/hr IV .BOLUS ONE Stop: 01/15/20 14:32 Last Admin: 01/15/20 14:23 Dose: 999 mls/hr Documented by: Iopamidol (Isovue Multipack-370 (76%)) 100 ml IVPUSH ONETIME STA Stop: 01/15/20 15:04 Last Admin: 01/15/20 15:04 Dose: 100 ml Documented by: Morphine Sulfate (Morphine) 4 mg IVPUSH ONETIME ONE Stop: 01/15/20 13:33 Last Admin: 01/15/20 14:19 Dose: 4 mg Documented by: Ondansetron HCl (Zofran) 4 mg IVPUSH ONETIME ONE Stop: 01/15/20 13:33 Last Admin: 01/15/20 14:17 Dose: 4 mg Documented by: Potassium Chloride (Potassium Chloride) 40 meq PO ONETIME ONE Stop: 01/15/20 20:01 Last Admin: 01/15/20 20:29 Dose: 40 meq Documented by: Warfarin Sodium (Coumadin) 10 mg PO 01/16/20@1400 [facility] Stop: 01/16/20 14:01 - Exam General: Alert, Oriented Lungs: Clear to Auscultation, Normal Respiratory Effort Cardiovascular: Regular Rate, Regular Rhythm GI/Abdominal Exam: Normal Bowel Sounds, Soft, Non-Tender Extremities: No Pedal Edema Psy/Mental Status: Alert Sepsis Event Note - Evaluation Sepsis Screening Result: No Definite Risk - Focused Exam Vital Signs: Vital Signs Temp Pulse Resp BP Pulse Ox 01/16/20 12:32 97.8 F 65 18 139/90 97 01/16/20 08:50 97.5 F 81 16 160/88 H 99 01/16/20 04:00 97.2 F 74 18 157/92 H 100 - Problem List & Annotations (1) Abdominal pain SNOMED Code(s): 24481356 Code(s): R10.9 - UNSPECIFIED ABDOMINAL PAIN Status: Acute (2) COVID-19 SNOMED Code(s): 896242666 Code(s): U07.1 - COVID-19 Status: Acute (3) Portal vein thrombosis SNOMED Code(s): 42022439 Code(s): I81 - PORTAL VEIN THROMBOSIS Status: Acute (4) Diverticulitis SNOMED Code(s): 998671809 Code(s): K57.92 - DVTRCLI OF INTEST, PART UNSP, W/O PERF OR ABSCESS W/O BLEED Status: Acute - Problem List Review Problem List Initiated/Reviewed/Updated: Yes - Plan Plan:: Portal venous thrombosis, 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 We will continue patient's heparin GTT therapy and repeat CT scan in 3 days. Covidpatient did test positive for Covid but has no current respiratory symptoms and is between 99-100% oxygen saturation on room air. At this time does not require remdesivir, dexamethasone. Will gear changer as needed. <Boone Gibson - Last Filed: 01/20/20 19:05> - Patient Data Vitals - Most Recent: Last Vital Signs Temp 36.2 C 01/18/20 12:00 Pulse 80 01/18/20 12:00 Resp 18 01/18/20 12:00 BP 156/97 H 01/18/20 12:00 Pulse Ox 99 01/18/20 12:00 Med Orders - Current: Current Medications Discontinued Medications Acetaminophen (Tylenol) 650 mg PO Q4H PRN PRN Reason: Pain (Mild 1-3)/fever Enoxaparin Sodium (Lovenox) 90 mg SUBCUT Q12H NAFISA Enoxaparin Sodium (Lovenox) Confirm Administered Dose 150 mg .ROUTE .STK-MED ONE Stop: 01/18/20 12:04 Last Admin: 01/18/20 12:15 Dose: 120 mg Documented by: Enoxaparin Sodium (Lovenox) 120 mg SUBCUT Q24H NAFISA Heparin Sodium (Porcine) (Heparin Sodium) 5,000 units IVPUSH ONETIME ONE Stop: 01/15/20 16:58 Last Admin: 01/15/20 18:08 Dose: 5,000 units Documented by: Heparin Sodium (Porcine) (Heparin Sodium) 1,500 units IVPUSH .BOLUS ONE Stop: 01/16/20 11:43 Last Admin: 01/16/20 11:56 Dose: 1,500 units Documented by: Lactated Ringer's (Ringers, Lactated) 1,000 mls @ 999 mls/hr IV .BOLUS ONE Stop: 01/15/20 14:32 Last Admin: 01/15/20 14:23 Dose: 999 mls/hr Documented by: Heparin Sodium/Sodium Chloride (Heparin 25,000 Units In 1/2 Ns 500 Ml) 500 mls @ 35.108 mls/hr IV TITRATE NAFISA; Protocol Last Titration: 01/18/20 05:15 Dose: 16 units/kg/hr, 31.207 mls/hr Documented by: Lactated Ringer's (Ringers, Lactated) 1,000 mls @ 125 mls/hr IV ASDIRECTED NAFISA Last Admin: 01/17/20 23:20 Dose: 125 mls/hr Documented by: Pantoprazole Sodium 40 mg/ (Sodium Chloride) 10 mls @ 300 mls/hr IV Q24H [facility] Last Admin: 01/18/20 00:32 Dose: Not Given Documented by: Iopamidol (Isovue Multipack-370 (76%)) 100 ml IVPUSH ONETIME STA Stop: 01/15/20 15:04 Last Admin: 01/15/20 15:04 Dose: 100 ml Documented by: Iopamidol (Isovue Multipack-370 (76%)) 100 ml IVPUSH ONETIME ONE Stop: 01/18/20 08:32 Last Admin: 01/18/20 08:32 Dose: 100 ml Documented by: Lorazepam (Ativan) 1 mg IVPUSH ONETIME PRN PRN Reason: Insomnia Last Admin: 01/16/20 01:44 Dose: 1 mg Documented by: Lorazepam (Ativan) 1 mg IVPUSH ONETIME ONE Stop: 01/16/20 21:30 Last Admin: 01/16/20 23:11 Dose: 1 mg Documented by: Lorazepam (Ativan) 0.5 mg IVPUSH ONETIME ONE Stop: 01/17/20 21:31 Last Admin: 01/17/20 23:21 Dose: 0.5 mg Documented by: Morphine Sulfate (Morphine) 4 mg IVPUSH ONETIME ONE Stop: 01/15/20 13:33 Last Admin: 01/15/20 14:19 Dose: 4 mg Documented by: Morphine Sulfate (Morphine) 1 mg IVPUSH Q4H PRN PRN Reason: Pain Last Admin: 01/15/20 21:40 Dose: 1 mg Documented by: Ondansetron HCl (Zofran) 4 mg IVPUSH ONETIME ONE Stop: 01/15/20 13:33 Last Admin: 01/15/20 14:17 Dose: 4 mg Documented by: Ondansetron HCl (Zofran) 4 mg IVPUSH Q4H PRN PRN Reason: Nausea/Vomiting Last Admin: 01/15/20 22:09 Dose: 4 mg Documented by: Potassium Chloride (Potassium Chloride) 40 meq PO ONETIME ONE Stop: 01/15/20 20:01 Last Admin: 01/15/20 20:29 Dose: 40 meq Documented by: Sodium Chloride (Saline Flush) 10 ml FLUSH ASDIRECTED PRN PRN Reason: Keep Vein Open Last Admin: 01/15/20 18:10 Dose: 10 ml Documented by: Sodium Chloride (Saline Flush) 2.5 ml FLUSH ASDIRECTED PRN PRN Reason: Keep Vein Open Last Admin: 01/15/20 18:10 Dose: 2.5 ml Documented by: Warfarin Sodium (Coumadin Ask) 1 each PO DAILY@1400 [facility] Last Admin: 01/17/20 18:37 Dose: Not Given Documented by: Warfarin Sodium (Coumadin) 10 mg PO 01/16/20@1400 [facility] Stop: 01/16/20 14:01 Last Admin: 01/16/20 14:47 Dose: 10 mg Documented by: Warfarin Sodium (Coumadin) 10 mg PO DAILY@1400 [facility] Stop: 01/17/20 14:01 Last Admin: 01/17/20 14:34 Dose: 10 mg Documented by: Warfarin Sodium (Coumadin) 5 mg PO 01/18/20@1200 [facility] Stop: 01/18/20 12:01 Last Admin: 12/11/20 12:15 Dose: 5 mg Documented by: - Problem List & Annotations (1) COVID-19 SNOMED Code(s): 682818753 Code(s): U07.1 - COVID-19 Status: Acute (2) Portal vein thrombosis SNOMED Code(s): 62075604 Code(s): I81 - PORTAL VEIN THROMBOSIS Status: Acute (3) Abdominal pain SNOMED Code(s): 79866383 Code(s): R10.9 - UNSPECIFIED ABDOMINAL PAIN Status: Acute - Plan Plan:: I have seen and evaluated the patient. I have discussed findings and treatment plan with resident. I agree with the assessment and plan in the following note.
--- NOTE | 2020-01-16 19:27 | PN ---
SUBJECTIVE: He has no complaints. He says he no longer has any of the vague abdominal pain he was having for last week. OBJECTIVE: GENERAL: The patient is lying comfortably in his hospital bed. He is alert and oriented, in no acute distress. ABDOMEN: Soft, nontender, nondistended. ASSESSMENT AND PLAN: The patient is a pleasant 39-year-old gentleman who was admitted yesterday for a clot in his portal vein, mesenteric and splenic vein. The patient has been started on a workup for a clotting disorder. He has also been placed on heparin drip. Looks like IR was consulted and recommendation was to continue the heparin drip and repeat the CT scan in 3 days. I did discuss with the Medicine team. Currently, no surgical intervention is needed. Surgery will sign off for now. Please contact if there are any changes to the patient such as changing or increased abdominal pain or if there are any further questions or concerns. CIELO / HITESH /[id number] JANENE
[2020-01-16] MEDS ORDERED: LORazepam 2 MG/ML SDV IVPUSH ONE (21:29)
[2020-01-17] MEDS: Heparin Sodium/0.45% NaCl 500 ML IV SCH ×2 (00:33→16:28)
[2020-01-17] MEDS: Pantoprazole 40 MG in Sodium Chloride 0.9% 10 ML IV SCH ×2 (01:50→23:20)
[2020-01-17 04:35] LABS: BLOOD UREA NITROGEN,BUN 9 mg/dL (7.0-18.0); CARBON DIOXIDE,CO2 23.8 mmol/L (21.0-32.0); CHLORIDE,CL 106 mmol/L (98-107); GLUCOSE RANDOM 105 mg/dL (74-106); POTASSIUM,K 3.6 mmol/L (3.5-5.1); SODIUM,NA 142 mmol/L (136-148)
[2020-01-17] MEDS: Lactated Ringers 1,000 ML IV SCH ×3 (06:26→23:20)
--- NOTE | 2020-01-17 11:50 | PCM.PN ---
- General Info Date of Service: 01/17/20 Subjective Update: Patient denies abdominal or flank pain, fever, chills, nausea, vomiting, diarrhea. States good appetite and states he has been sleeping well - Review of Systems General: Denies: Fever, Chills Pulmonary: Denies: Shortness of Breath Cardiovascular: Denies: Chest Pain, Palpitations Gastrointestinal: Denies: Abdominal Pain, Decreased Appetite, Diarrhea, Nausea, Vomiting Neurological: Denies: Confusion, Dizziness, Headache - Patient Data Vitals - Most Recent: Last Vital Signs Temp 97.2 F 01/17/20 08:38 Pulse 88 01/17/20 08:38 Resp 18 01/17/20 08:38 BP 143/97 H 01/17/20 08:38 Pulse Ox 100 01/17/20 08:38 Weight - Most Recent: 191 lb 12.8 oz I&O - Last 24 Hours: Intake & Output 01/16/20 01/17/20 01/17/20 22:59 06:59 14:59 Intake Total 500 2235 Balance 500 2235 Lab Results Last 24 Hours: Laboratory Results - last 24 hr 01/16/20 01/16/20 01/17/20 Range/Units 16:08 22:17 04:06 WBC (4.0-11.0) K/uL RBC (4.50-5.90) M/uL Hgb (13.0-17.0) g/dL Hct (38.0-50.0) % MCV (80.0-98.0) fL MCH (27.0-32.0) pg MCHC (31.0-37.0) g/dL RDW Std Deviation (28.0-62.0) fl RDW Coeff of Alessandro (11.0-15.0) % Plt Count (150-400) K/uL MPV (7.40-12.00) fL Neut % (Auto) (48.0-80.0) % Lymph % (Auto) (16.0-40.0) % [place] % (Auto) (0.0-15.0) % Eos % (Auto) (0.0-7.0) % Baso % (Auto) (0.0-1.5) % Neut # (Auto) (1.4-5.7) K/uL Lymph # (Auto) (0.6-2.4) K/uL [place] # (Auto) (0.0-0.8) K/uL Eos # (Auto) (0.0-0.7) K/uL Baso # (Auto) (0.0-0.1) K/uL Nucleated RBC % /100WBC Nucleated RBCs # K/uL APTT 64.3 H 69.0 H 83.8 H (18.6-31.3) SEC Sodium (136-148) mmol/L Potassium (3.5-5.1) mmol/L Chloride (98-107) mmol/L Carbon Dioxide (21.0-32.0) mmol/L BUN (7.0-18.0) mg/dL Creatinine (0.8-1.3) mg/dL Est Cr Clr Drug Dosing mL/min Estimated GFR (MDRD) ml/min Glucose (74-106) mg/dL Calcium (8.5-10.1) mg/dL Total Bilirubin (0.2-1.0) mg/dL AST (15-37) IU/L ALT (14-63) IU/L Alkaline Phosphatase (46-116) U/L Total Protein (6.4-8.2) g/dL Albumin (3.4-5.0) g/dL Globulin (2.6-4.0) g/dL Albumin/Globulin Ratio (0.9-1.6) 01/17/20 01/17/20 Range/Units 04:06 04:06 WBC 4.84 (4.0-11.0) K/uL RBC 5.79 (4.50-5.90) M/uL Hgb 15.4 (13.0-17.0) g/dL Hct 44.9 (38.0-50.0) % MCV 77.5 L (80.0-98.0) fL MCH 26.6 L (27.0-32.0) pg MCHC 34.3 (31.0-37.0) g/dL RDW Std Deviation 36.8 (28.0-62.0) fl RDW Coeff of Alessandro 13 (11.0-15.0) % Plt Count 143 L (150-400) K/uL MPV 10.10 (7.40-12.00) fL Neut % (Auto) 56.3 (48.0-80.0) % Lymph % (Auto) 29.3 (16.0-40.0) % [place] % (Auto) 12.8 (0.0-15.0) % Eos % (Auto) 1.0 (0.0-7.0) % Baso % (Auto) 0.6 (0.0-1.5) % Neut # (Auto) 2.7 (1.4-5.7) K/uL Lymph # (Auto) 1.4 (0.6-2.4) K/uL [place] # (Auto) 0.6 (0.0-0.8) K/uL Eos # (Auto) 0.1 (0.0-0.7) K/uL Baso # (Auto) 0.0 (0.0-0.1) K/uL Nucleated RBC % 0.0 /100WBC Nucleated RBCs # 0 K/uL APTT (18.6-31.3) SEC Sodium 142 (136-148) mmol/L Potassium 3.6 (3.5-5.1) mmol/L Chloride 106 (98-107) mmol/L Carbon Dioxide 23.8 (21.0-32.0) mmol/L BUN 9 (7.0-18.0) mg/dL Creatinine 1.0 (0.8-1.3) mg/dL Est Cr Clr Drug Dosing 108.86 mL/min Estimated GFR (MDRD) > 60.0 ml/min Glucose 105 (74-106) mg/dL Calcium 8.7 (8.5-10.1) mg/dL Total Bilirubin 0.5 (0.2-1.0) mg/dL AST 18 (15-37) IU/L ALT 31 (14-63) IU/L Alkaline Phosphatase 60 (46-116) U/L Total Protein 7.2 (6.4-8.2) g/dL Albumin 2.7 L (3.4-5.0) g/dL Globulin 4.5 H (2.6-4.0) g/dL Albumin/Globulin Ratio 0.6 L (0.9-1.6) Med Orders - Current: Current Medications Acetaminophen (Tylenol) 650 mg PO Q4H PRN PRN Reason: Pain (Mild 1-3)/fever Heparin Sodium/Sodium Chloride (Heparin 25,000 Units In 1/2 Ns 500 Ml) 500 mls @ 35.108 mls/hr IV TITRATE [facility]; Protocol Last Titration: 01/17/20 05:14 Dose: 16 units/kg/hr, 31.207 mls/hr Documented by: Lactated Ringer's (Ringers, Lactated) 1,000 mls @ 125 mls/hr IV ASDIRECTED [facility] Last Admin: 01/17/20 06:26 Dose: 125 mls/hr Documented by: Pantoprazole Sodium 40 mg/ (Sodium Chloride) 10 mls @ 300 mls/hr IV Q24H [facility] Last Admin: 01/17/20 01:50 Dose: Not Given Documented by: Lorazepam (Ativan) 1 mg IVPUSH ONETIME PRN PRN Reason: Insomnia Last Admin: 01/16/20 01:44 Dose: 1 mg Documented by: Morphine Sulfate (Morphine) 1 mg IVPUSH Q4H PRN PRN Reason: Pain Last Admin: 01/15/20 21:40 Dose: 1 mg Documented by: Ondansetron HCl (Zofran) 4 mg IVPUSH Q4H PRN PRN Reason: Nausea/Vomiting Last Admin: 01/15/20 22:09 Dose: 4 mg Documented by: Sodium Chloride (Saline Flush) 10 ml FLUSH ASDIRECTED PRN PRN Reason: Keep Vein Open Last Admin: 01/15/20 18:10 Dose: 10 ml Documented by: Sodium Chloride (Saline Flush) 2.5 ml FLUSH ASDIRECTED PRN PRN Reason: Keep Vein Open Last Admin: 01/15/20 18:10 Dose: 2.5 ml Documented by: Warfarin Sodium (Coumadin Ask) 1 each PO DAILY@1400 [facility] Last Admin: 01/16/20 14:47 Dose: Not Given Documented by: Discontinued Medications Heparin Sodium (Porcine) (Heparin Sodium) 5,000 units IVPUSH ONETIME ONE Stop: 01/15/20 16:58 Last Admin: 01/15/20 18:08 Dose: 5,000 units Documented by: Heparin Sodium (Porcine) (Heparin Sodium) 1,500 units IVPUSH .BOLUS ONE Stop: 01/16/20 11:43 Last Admin: 01/16/20 11:56 Dose: 1,500 units Documented by: Lactated Ringer's (Ringers, Lactated) 1,000 mls @ 999 mls/hr IV .BOLUS ONE Stop: 01/15/20 14:32 Last Admin: 01/15/20 14:23 Dose: 999 mls/hr Documented by: Iopamidol (Isovue Multipack-370 (76%)) 100 ml IVPUSH ONETIME STA Stop: 01/15/20 15:04 Last Admin: 01/15/20 15:04 Dose: 100 ml Documented by: Lorazepam (Ativan) 1 mg IVPUSH ONETIME ONE Stop: 01/16/20 21:30 Last Admin: 01/16/20 23:11 Dose: 1 mg Documented by: Morphine Sulfate (Morphine) 4 mg IVPUSH ONETIME ONE Stop: 01/15/20 13:33 Last Admin: 01/15/20 14:19 Dose: 4 mg Documented by: Ondansetron HCl (Zofran) 4 mg IVPUSH ONETIME ONE Stop: 01/15/20 13:33 Last Admin: 01/15/20 14:17 Dose: 4 mg Documented by: Potassium Chloride (Potassium Chloride) 40 meq PO ONETIME ONE Stop: 01/15/20 20:01 Last Admin: 01/15/20 20:29 Dose: 40 meq Documented by: Warfarin Sodium (Coumadin) 10 mg PO 01/16/20@1400 [facility] Stop: 01/16/20 14:01 Last Admin: 01/16/20 14:47 Dose: 10 mg Documented by: - Exam General: Alert, Oriented Lungs: Clear to Auscultation, Normal Respiratory Effort Cardiovascular: Regular Rate, Regular Rhythm GI/Abdominal Exam: Normal Bowel Sounds, Soft, Non-Tender Extremities: No Pedal Edema Sepsis Event Note - Evaluation Sepsis Screening Result: No Definite Risk - Focused Exam Vital Signs: Vital Signs Temp Pulse Resp BP Pulse Ox 01/17/20 08:38 97.2 F 88 18 143/97 H 100 01/17/20 04:00 96.8 F L 71 18 142/97 H 100 - Problem List & Annotations (1) Abdominal pain SNOMED Code(s): 29233373 Code(s): R10.9 - UNSPECIFIED ABDOMINAL PAIN Status: Acute Current Visit: Yes (2) COVID-19 SNOMED Code(s): 973428733 Code(s): U07.1 - COVID-19 Status: Acute Current Visit: Yes (3) Portal vein thrombosis SNOMED Code(s): 06150990 Code(s): I81 - PORTAL VEIN THROMBOSIS Status: Acute Current Visit: Yes (4) Diverticulitis SNOMED Code(s): 316663393 Code(s): K57.92 - DVTRCLI OF INTEST, PART UNSP, W/O PERF OR ABSCESS W/O BLEED Status: Acute Current Visit: No - Problem List Review Problem List Initiated/Reviewed/Updated: Yes - Plan Plan:: Portal venous thrombosis, 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 We will continue patient's heparin GTT therapy and repeat CT scan in 3 days. Patient began anticoagulation bridging yesterday with warfarin. Will monitor daily INR. Patient may like to leave before 5 days of warfarin has been administer. Will discuss outpatient options for anticoagulation bridging. Patient to be anticoagulated for 6 months post discharge. Covidpatient did test positive for Covid but has no current respiratory symptoms and is between 99-100% oxygen saturation on room air. At this time does not require remdesivir, dexamethasone. Will exchange mechanic as needed.
[2020-01-17] MEDS ORDERED: Warfarin 10 MG Tab PO SCH (14:00)
[2020-01-17] MEDS ORDERED: LORazepam 2 MG/ML SDV IVPUSH ONE (21:30)
[2020-01-18] MEDS: Pantoprazole 40 MG in Sodium Chloride 0.9% 10 ML IV SCH (00:32)
[2020-01-18 06:03] LABS: BLOOD UREA NITROGEN,BUN 7 mg/dL (7.0-18.0); CARBON DIOXIDE,CO2 22.6 mmol/L (21.0-32.0); CHLORIDE,CL 107 mmol/L (98-107); GLUCOSE RANDOM 93 mg/dL (74-106); POTASSIUM,K 3.6 mmol/L (3.5-5.1); SODIUM,NA 142 mmol/L (136-148)
[2020-01-18] MEDS ORDERED: Iopamidol 755 MG/ML 500 ML Multipack Bottle IVPUSH ONE (08:31)
--- NOTE | 2020-01-18 09:13 | CT ---
INDICATION: Splanchnic venous thrombosis COMPARISON: January 15, 2020 TECHNIQUE: CT examination of the abdomen and pelvis was performed following the uneventful intravenous administration of 100 cc of Isovue 370. Thin section axial images were obtained from the lung bases through the pubic symphysis. Oral contrast was not administered. The study was performed as an arterial phase angiogram. TECHNICAL NOTE: The study was performed in arterial phase angiogram and was not performed as a splanchnic venogram. Therefore unfortunately the splanchnic venous vasculature is non opacified on this study. Please note that all CT scans at this facility use dose modulation, iterative reconstruction, and/or weight-based dosing when appropriate to reduce radiation dose to as low as reasonably achievable. FINDINGS: LUNG BASES: The lung bases as visualized appear normal.The heart size is normal at the lung bases. LIVER/BILIARY SYSTEM:Given the arterial phase of injection, the liver appears normal. No focal mass or biliary ductal dilatation. Gallbladder appears normal. ADRENALS: Normal KIDNEYS, URETERS and BLADDER:Given the early arterial phase of the injection, the kidneys appear normal. The bladder as visualized appears normal unopacified SPLEEN:Normal appearance. PANCREAS: Appears normal. RETROPERITONEUM and MESENTERY: No retroperitoneal lymphadenopathy. Mesenteric engorgement as discussed below GASTROINTESTINAL SYSTEM: There is no evidence of diverticulitis, colitis, mechanical obstruction, or appendicitis. The small bowel as visualized appears normal. PELVIS: No mass, adenopathy or free fluid. OSSEOUS STRUCTURES and ABDOMINAL WALL: There is an age-appropriate appearance of the osseous structures.No significant abdominal wall defect. OTHER: No free fluid or free air. SPLANCHNIC/MESENTERIC VENOUS/PORTAL VENOUS/SPLENIC VENOUS VASCULATURE: As mentioned above under technical note, this study was performed as an arterial phase study and not a venous phase study. On this examination, I clearly see abnormal dilation of the portal vein, the superior mesenteric vein and multiple intestinal venous branches from the superior mesenteric vein. This is also associated with mesenteric engorgement. Unfortunately, the since this is an arterial phase study, this is less well demonstrated on the current study than it was on the January 15, 2020 study. ARTERIAL STUDY: Normal arterial vasculature IMPRESSION: 1. Thrombosis identified involving the portal vein, superior mesenteric vein and multiple intestinal branches with associated mesenteric venous engorgement. The probable splenic venous involvement noted previously is not well demonstrated on this examination. This study was performed as an arterial phase angiogram. Please review the comment regarding this. 2. Arterial angiogram is normal Please note that all CT scans at this facility use dose modulation, iterative reconstruction, and/or weight-based dosing when appropriate to reduce radiation dose to as low as reasonably achievable. Dictated by Nacho Vazquez MD @ Jan 18 2020 8:59AM Signed by Dr. Nacho Vazquez @ Jan 18 2020 9:12AM
[2020-01-18] MEDS ORDERED: Enoxaparin 100 MG/1 ML Syringe SUBCUT SCH ×2 (10:15→12:00)
[2020-01-18] MEDS ORDERED: Warfarin 5 MG Tab PO SCH (12:00)
[2020-01-18] MEDS ORDERED: Enoxaparin 150 MG/1 ML Syringe ONE (12:03)
[2020-01-18] MEDS ORDERED: Enoxaparin 150 MG/1 ML Syringe SUBCUT SCH (12:15)
--- NOTE | 2020-01-18 14:15 | PCM.DCSUM1 ---
<iWlfred Taveras - Last Filed: 01/18/20 16:35> Discharge Summary - Hospital Course Free Text/Narrative:: 39-year-old male admitted for portal vein thrombosis, splenic vein thrombosis, superior mesenteric vein thrombosis. Patient about past medical history of diverticulitis, pancreatitis. Patient presented to the ED with left lower quadrant abdominal pain for 1 week. Patient states the pain was dull, chronic and different from previous diverticulitis pain. CT scan of abdomen obtained which showed significant extensive portal venous thrombosis predominantly within portal vein, SMV, and splenic vein with central mesenteric edema. On admission patient denied fever, chills, nausea, vomiting, diarrhea, testicular pain, dysuria, flank pain. Surgery consult was obtained due to extensive clot burden and possible bowel involvement. Surgery recommended IR consult. IR reviewed the images and recommenced with heparin gtt and repeat CT scan in 3 days. Patient was covid positive on admission but did not have any respiratory symptoms. Patient treated for 3 days with heparin, CT abdomen pelvis with contrast repeated prior to discharge which showed continued thrombus in the portal vein, splenic vein, superior mesenteric vein mostly unchanged from the previous CT scan 3 days prior. During admission patient denied nausea, vomiting, abdominal pain. Bowel movements and appetite were normal. Patient was started on warfarin prior to discharge to begin bridging. Patient discharged with 5 mg warfarin X 30 days, 120 mg Lovenox daily, patient to follow-up with primary care physician on 01/21/2020 at which time PT/INR will be obtained. Patient will be referred to Coumadin clinic at some point. Patient states that his new health insurance will begin February 07 and would like to switch from warfarin to Eliquis at that time. All medication changes to be discussed with primary care ph ysician at that time. - Discharge Data Discharge Date: 01/18/20 Discharge Disposition: Home, Self-Care 01 Condition: Fair - Referral to Home Health Primary Care Physician: PCP None - Discharge Diagnosis/Problem(s) (1) Abdominal pain SNOMED Code(s): 38397333 ICD Code: R10.9 - UNSPECIFIED ABDOMINAL PAIN Status: Acute (2) COVID-19 SNOMED Code(s): 647851698 ICD Code: U07.1 - COVID-19 Status: Acute (3) Portal vein thrombosis SNOMED Code(s): 63166093 ICD Code: I81 - PORTAL VEIN THROMBOSIS Status: Acute (4) Diverticulitis SNOMED Code(s): 039163433 ICD Code: K57.92 - DVTRCLI OF INTEST, PART UNSP, W/O PERF OR ABSCESS W/O BLEED Status: Acute - Patient Instructions Diet: Usual Diet as Tolerated Driving: May Drive Today Showering/Bathing: May Shower Notify Provider of: Fever, Increased Pain, Swelling and Redness, Drainage, Nausea and/or Vomiting Other/Special Instructions: Follow up with PCP appointment after discharge to have your INR level checked. Take medications as instructed. Avoid activities and sports that may cause trauma - Discharge Plan *PRESCRIPTION DRUG MONITORING PROGRAM REVIEWED*: Not Applicable *COPY OF PRESCRIPTION DRUG MONITORING REPORT IN PATIENT VIGNESH: Not Applicable Prescriptions/Med Rec: Warfarin [Coumadin] 5 mg PO DAILY 30 Days #30 tab Enoxaparin [Lovenox] 120 mg SUBCUT DAILY 5 Days #5 syringe Home Medications: Home Meds Enoxaparin [Lovenox] 120 mg SUBCUT DAILY 5 Days #5 syringe 01/18/20 [Rx] Warfarin [Coumadin] 5 mg PO DAILY 30 Days #30 tab 01/18/20 [Rx] Patient Handouts: COVID-19 Frequently Asked Questions, COVID-19, Portal Vein Thrombosis, Enoxaparin injection, Warfarin tablets, COVID-19: How to Protect Yourself and Others - CDC, Coronavirus Information 04/23/19, Prevent the Spread of COVID-19 if You Are Sick - [facility] [place][NOTE 3] Referrals: Wilfred Taveras MD [Resident] - 01/21/20 1:00 pm - Discharge Summary/Plan Comment DC Time >30 min.: Yes - General Info Date of Service: 01/18/20 Subjective Update: Patient denies nausea, vomiting, abdominal pain. Patient states that he feels good and he would like to go home. Patient understands that upon discharge she will have to follow-up with PCP and obtain INR results. Patient also states that he is comfortable using Lovenox injections daily. - Review of Systems General: Denies: Fever, Chills HEENT: Denies: Visual Changes Pulmonary: Denies: Shortness of Breath, Cough Cardiovascular: Denies: Chest Pain, Palpitations, Dyspnea on Exertion Gastrointestinal: Denies: Abdominal Pain, Decreased Appetite, Nausea, Vomiting Genitourinary: Denies: Dysuria Neurological: Denies: Confusion, Dizziness, Headache - Patient Data Vitals - Most Recent: Last Vital Signs Temp 97.1 F 01/18/20 12:00 Pulse 80 01/18/20 12:00 Resp 18 01/18/20 12:00 BP 156/97 H 01/18/20 12:00 Pulse Ox 99 01/18/20 12:00 Weight - Most Recent: 86.999 kg I&O - Last 24 hours: Intake & Output 01/17/20 01/18/20 01/18/20 22:59 06:59 14:59 Intake Total 1000 2335 Balance 1000 2335 Lab Results - Last 24 hrs: Laboratory Results - last 24 hr 01/17/20 01/17/20 01/18/20 Range/Units 16:48 22:44 04:54 WBC (4.0-11.0) K/uL RBC (4.50-5.90) M/uL Hgb (13.0-17.0) g/dL Hct (38.0-50.0) % MCV (80.0-98.0) fL MCH (27.0-32.0) pg MCHC (31.0-37.0) g/dL RDW Std Deviation (28.0-62.0) fl RDW Coeff of Alessandro (11.0-15.0) % Plt Count (150-400) K/uL MPV (7.40-12.00) fL Neut % (Auto) (48.0-80.0) % Lymph % (Auto) (16.0-40.0) % [place] % (Auto) (0.0-15.0) % Eos % (Auto) (0.0-7.0) % Baso % (Auto) (0.0-1.5) % Neut # (Auto) (1.4-5.7) K/uL Lymph # (Auto) (0.6-2.4) K/uL [place] # (Auto) (0.0-0.8) K/uL Eos # (Auto) (0.0-0.7) K/uL Baso # (Auto) (0.0-0.1) K/uL Nucleated RBC % /100WBC Nucleated RBCs # K/uL INR APTT 51.8 H 63.9 H 69.9 H (18.6-31.3) SEC Sodium (136-148) mmol/L Potassium (3.5-5.1) mmol/L Chloride (98-107) mmol/L Carbon Dioxide (21.0-32.0) mmol/L BUN (7.0-18.0) mg/dL Creatinine (0.8-1.3) mg/dL Est Cr Clr Drug Dosing mL/min Estimated GFR (MDRD) ml/min Glucose (74-106) mg/dL Calcium (8.5-10.1) mg/dL Total Bilirubin (0.2-1.0) mg/dL AST (15-37) IU/L ALT (14-63) IU/L Alkaline Phosphatase (46-116) U/L Total Protein (6.4-8.2) g/dL Albumin (3.4-5.0) g/dL Globulin (2.6-4.0) g/dL Albumin/Globulin Ratio (0.9-1.6) 01/18/20 01/18/20 01/18/20 Range/Units 04:54 04:54 04:54 WBC 5.04 (4.0-11.0) K/uL RBC 5.99 H (4.50-5.90) M/uL Hgb 15.8 (13.0-17.0) g/dL Hct 46.7 (38.0-50.0) % MCV 78.0 L (80.0-98.0) fL MCH 26.4 L (27.0-32.0) pg MCHC 33.8 (31.0-37.0) g/dL RDW Std Deviation 36.6 (28.0-62.0) fl RDW Coeff of Alessandro 13 (11.0-15.0) % Plt Count 168 (150-400) K/uL MPV 10.50 (7.40-12.00) fL Neut % (Auto) 49.8 (48.0-80.0) % Lymph % (Auto) 32.1 (16.0-40.0) % [place] % (Auto) 16.3 H (0.0-15.0) % Eos % (Auto) 1.2 (0.0-7.0) % Baso % (Auto) 0.6 (0.0-1.5) % Neut # (Auto) 2.5 (1.4-5.7) K/uL Lymph # (Auto) 1.6 (0.6-2.4) K/uL [place] # (Auto) 0.8 (0.0-0.8) K/uL Eos # (Auto) 0.1 (0.0-0.7) K/uL Baso # (Auto) 0.0 (0.0-0.1) K/uL Nucleated RBC % 0.0 /100WBC Nucleated RBCs # 0 K/uL INR 1.68 APTT (18.6-31.3) SEC Sodium 142 (136-148) mmol/L Potassium 3.6 (3.5-5.1) mmol/L Chloride 107 (98-107) mmol/L Carbon Dioxide 22.6 (21.0-32.0) mmol/L BUN 7 (7.0-18.0) mg/dL Creatinine 1.0 (0.8-1.3) mg/dL Est Cr Clr Drug Dosing 108.86 mL/min Estimated GFR (MDRD) > 60.0 ml/min Glucose 93 (74-106) mg/dL Calcium 8.8 (8.5-10.1) mg/dL Total Bilirubin 0.3 (0.2-1.0) mg/dL AST 20 (15-37) IU/L ALT 31 (14-63) IU/L Alkaline Phosphatase 59 (46-116) U/L Total Protein 7.5 (6.4-8.2) g/dL Albumin 3.0 L (3.4-5.0) g/dL Globulin 4.5 H (2.6-4.0) g/dL Albumin/Globulin Ratio 0.7 L (0.9-1.6) Med Orders - Current: Current Medications Acetaminophen (Tylenol) 650 mg PO Q4H PRN PRN Reason: Pain (Mild 1-3)/fever Enoxaparin Sodium (Lovenox) 120 mg SUBCUT Q24H NAFISA Lactated Ringer's (Ringers, Lactated) 1,000 mls @ 125 mls/hr IV ASDIRECTED NAFISA Last Admin: 01/17/20 23:20 Dose: 125 mls/hr Documented by: Pantoprazole Sodium 40 mg/ (Sodium Chloride) 10 mls @ 300 mls/hr IV Q24H NAFISA Last Admin: 01/18/20 00:32 Dose: Not Given Documented by: Morphine Sulfate (Morphine) 1 mg IVPUSH Q4H PRN PRN Reason: Pain Last Admin: 01/15/20 21:40 Dose: 1 mg Documented by: Ondansetron HCl (Zofran) 4 mg IVPUSH Q4H PRN PRN Reason: Nausea/Vomiting Last Admin: 01/15/20 22:09 Dose: 4 mg Documented by: Sodium Chloride (Saline Flush) 10 ml FLUSH ASDIRECTED PRN PRN Reason: Keep Vein Open Last Admin: 01/15/20 18:10 Dose: 10 ml Documented by: Sodium Chloride (Saline Flush) 2.5 ml FLUSH ASDIRECTED PRN PRN Reason: Keep Vein Open Last Admin: 01/15/20 18:10 Dose: 2.5 ml Documented by: Warfarin Sodium (Coumadin Ask) 1 each PO DAILY@1400 NAFISA Last Admin: 01/17/20 18:37 Dose: Not Given Documented by: Discontinued Medications Enoxaparin Sodium (Lovenox) 90 mg SUBCUT Q12H [facility] Enoxaparin Sodium (Lovenox) Confirm Administered Dose 150 mg .ROUTE .STK-MED ONE Stop: 01/18/20 12:04 Last Admin: 01/18/20 12:15 Dose: 120 mg Documented by: Heparin Sodium (Porcine) (Heparin Sodium) 5,000 units IVPUSH ONETIME ONE Stop: 01/15/20 16:58 Last Admin: 01/15/20 18:08 Dose: 5,000 units Documented by: Heparin Sodium (Porcine) (Heparin Sodium) 1,500 units IVPUSH .BOLUS ONE Stop: 01/16/20 11:43 Last Admin: 01/16/20 11:56 Dose: 1,500 units Documented by: Lactated Ringer's (Ringers, Lactated) 1,000 mls @ 999 mls/hr IV .BOLUS ONE Stop: 01/15/20 14:32 Last Admin: 01/15/20 14:23 Dose: 999 mls/hr Documented by: Heparin Sodium/Sodium Chloride (Heparin 25,000 Units In 1/2 Ns 500 Ml) 500 mls @ 35.108 mls/hr IV TITRATE NAFISA; Protocol Last Titration: 01/18/20 05:15 Dose: 16 units/kg/hr, 31.207 mls/hr Documented by: Iopamidol (Isovue Multipack-370 (76%)) 100 ml IVPUSH ONETIME STA Stop: 01/15/20 15:04 Last Admin: 01/15/20 15:04 Dose: 100 ml Documented by: Iopamidol (Isovue Multipack-370 (76%)) 100 ml IVPUSH ONETIME ONE Stop: 01/18/20 08:32 Last Admin: 01/18/20 08:32 Dose: 100 ml Documented by: Lorazepam (Ativan) 1 mg IVPUSH ONETIME PRN PRN Reason: Insomnia Last Admin: 01/16/20 01:44 Dose: 1 mg Documented by: Lorazepam (Ativan) 1 mg IVPUSH ONETIME ONE Stop: 01/16/20 21:30 Last Admin: 01/16/20 23:11 Dose: 1 mg Documented by: Lorazepam (Ativan) 0.5 mg IVPUSH ONETIME ONE Stop: 01/17/20 21:31 Last Admin: 01/17/20 23:21 Dose: 0.5 mg Documented by: Morphine Sulfate (Morphine) 4 mg IVPUSH ONETIME ONE Stop: 01/15/20 13:33 Last Admin: 01/15/20 14:19 Dose: 4 mg Documented by: Ondansetron HCl (Zofran) 4 mg IVPUSH ONETIME ONE Stop: 01/15/20 13:33 Last Admin: 01/15/20 14:17 Dose: 4 mg Documented by: Potassium Chloride (Potassium Chloride) 40 meq PO ONETIME ONE Stop: 01/15/20 20:01 Last Admin: 01/15/20 20:29 Dose: 40 meq Documented by: Warfarin Sodium (Coumadin) 10 mg PO 01/16/20@1400 NAFISA Stop: 01/16/20 14:01 Last Admin: 01/16/20 14:47 Dose: 10 mg Documented by: Warfarin Sodium (Coumadin) 10 mg PO DAILY@1400 NAFISA Stop: 01/17/20 14:01 Last Admin: 01/17/20 14:34 Dose: 10 mg Documented by: Warfarin Sodium (Coumadin) 5 mg PO 01/18/20@1200 NAFISA Stop: 01/18/20 12:01 Last Admin: 01/18/20 12:15 Dose: 5 mg Documented by: - Exam General: Reports: Alert, Oriented Lungs: Reports: Clear to Auscultation, Normal Respiratory Effort Cardiovascular: Reports: Regular Rate, Regular Rhythm GI/Abdominal Exam: Normal Bowel Sounds, Soft, Non-Tender Extremities: No Pedal Edema Psy/Mental Status: Reports: Alert <Tariq Hargrove - Last Filed: 01/19/20 15:28> Discharge Summary - Referral to Home Health Primary Care Physician: PCP None - Patient Data Vitals - Most Recent: Last Vital Signs Temp 36.2 C 01/18/20 12:00 Pulse 80 01/18/20 12:00 Resp 18 01/18/20 12:00 BP 156/97 H 01/18/20 12:00 Pulse Ox 99 01/18/20 12:00 Lab Results - Last 24 hrs: Laboratory Results - last 24 hr 01/15/20 01/15/20 01/15/20 Range/Units 17:15 17:15 17:15 Functional Protein C 118 (73-180) % Functional Protein S 112 (63-140) % Antithrombin III Activ 101 (75-135) % Med Orders - Current: Current Medications Discontinued Medications Acetaminophen (Tylenol) 650 mg PO Q4H PRN PRN Reason: Pain (Mild 1-3)/fever Enoxaparin Sodium (Lovenox) 90 mg SUBCUT Q12H [facility] Enoxaparin Sodium (Lovenox) Confirm Administered Dose 150 mg .ROUTE .STK-MED ONE Stop: 01/18/20 12:04 Last Admin: 01/18/20 12:15 Dose: 120 mg Documented by: Enoxaparin Sodium (Lovenox) 120 mg SUBCUT Q24H [facility] Heparin Sodium (Porcine) (Heparin Sodium) 5,000 units IVPUSH ONETIME ONE Stop: 01/15/20 16:58 Last Admin: 01/15/20 18:08 Dose: 5,000 units Documented by: Heparin Sodium (Porcine) (Heparin Sodium) 1,500 units IVPUSH .BOLUS ONE Stop: 01/16/20 11:43 Last Admin: 01/16/20 11:56 Dose: 1,500 units Documented by: Lactated Ringer's (Ringers, Lactated) 1,000 mls @ 999 mls/hr IV .BOLUS ONE Stop: 01/15/20 14:32 Last Admin: 01/15/20 14:23 Dose: 999 mls/hr Documented by: Heparin Sodium/Sodium Chloride (Heparin 25,000 Units In 1/2 Ns 500 Ml) 500 mls @ 35.108 mls/hr IV TITRATE NAFISA; Protocol Last Titration: 01/18/20 05:15 Dose: 16 units/kg/hr, 31.207 mls/hr Documented by: Lactated Ringer's (Ringers, Lactated) 1,000 mls @ 125 mls/hr IV ASDIRECTED NAFISA Last Admin: 01/17/20 23:20 Dose: 125 mls/hr Documented by: Pantoprazole Sodium 40 mg/ (Sodium Chloride) 10 mls @ 300 mls/hr IV Q24H [facility] Last Admin: 01/18/20 00:32 Dose: Not Given Documented by: Iopamidol (Isovue Multipack-370 (76%)) 100 ml IVPUSH ONETIME STA Stop: 01/15/20 15:04 Last Admin: 01/15/20 15:04 Dose: 100 ml Documented by: Iopamidol (Isovue Multipack-370 (76%)) 100 ml IVPUSH ONETIME ONE Stop: 01/18/20 08:32 Last Admin: 01/18/20 08:32 Dose: 100 ml Documented by: Lorazepam (Ativan) 1 mg IVPUSH ONETIME PRN PRN Reason: Insomnia Last Admin: 01/16/20 01:44 Dose: 1 mg Documented by: Lorazepam (Ativan) 1 mg IVPUSH ONETIME ONE Stop: 01/16/20 21:30 Last Admin: 01/16/20 23:11 Dose: 1 mg Documented by: Lorazepam (Ativan) 0.5 mg IVPUSH ONETIME ONE Stop: 01/17/20 21:31 Last Admin: 01/17/20 23:21 Dose: 0.5 mg Documented by: Morphine Sulfate (Morphine) 4 mg IVPUSH ONETIME ONE Stop: 01/15/20 13:33 Last Admin: 01/15/20 14:19 Dose: 4 mg Documented by: Morphine Sulfate (Morphine) 1 mg IVPUSH Q4H PRN PRN Reason: Pain Last Admin: 01/15/20 21:40 Dose: 1 mg Documented by: Ondansetron HCl (Zofran) 4 mg IVPUSH ONETIME ONE Stop: 01/15/20 13:33 Last Admin: 01/15/20 14:17 Dose: 4 mg Documented by: Ondansetron HCl (Zofran) 4 mg IVPUSH Q4H PRN PRN Reason: Nausea/Vomiting Last Admin: 01/15/20 22:09 Dose: 4 mg Documented by: Potassium Chloride (Potassium Chloride) 40 meq PO ONETIME ONE Stop: 01/15/20 20:01 Last Admin: 01/15/20 20:29 Dose: 40 meq Documented by: Sodium Chloride (Saline Flush) 10 ml FLUSH ASDIRECTED PRN PRN Reason: Keep Vein Open Last Admin: 01/15/20 18:10 Dose: 10 ml Documented by: Sodium Chloride (Saline Flush) 2.5 ml FLUSH ASDIRECTED PRN PRN Reason: Keep Vein Open Last Admin: 01/15/20 18:10 Dose: 2.5 ml Documented by: Warfarin Sodium (Coumadin Ask) 1 each PO DAILY@1400 NAFISA Last Admin: 01/17/20 18:37 Dose: Not Given Documented by: Warfarin Sodium (Coumadin) 10 mg PO 01/16/20@1400 NAFISA Stop: 01/16/20 14:01 Last Admin: 01/16/20 14:47 Dose: 10 mg Documented by: Warfarin Sodium (Coumadin) 10 mg PO DAILY@1400 NAFISA Stop: 01/17/20 14:01 Last Admin: 01/17/20 14:34 Dose: 10 mg Documented by: Warfarin Sodium (Coumadin) 5 mg PO 01/18/20@1200 NAFISA Stop: 01/18/20 12:01 Last Admin: 01/18/20 12:15 Dose: 5 mg Documented by: - Free Text/Narrative Note: I have seen and evaluated the patient. I have discussed findings and treatment plan with resident. I agree with the assessment and plan in the following note.
== END 2020-01-18 16:04 | disposition home or self-care (01) ==
LOC: MW.ED 12:54 → MW.MS 16:56
PROVIDERS: ADMIT Student in an Organized Health Care Education/Training Program; ATTEND Student in an Organized Health Care Education/Training Program
DX: K57.92 Diverticulitis of intestine, part unspecified, without perforation or abscess without bleeding (principal); U07.1 COVID-19; I81 Portal vein thrombosis; K55.059 Acute (reversible) ischemia of intestine, part and extent unspecified
CPT/HCPCS: 36415; 74174; 74177; 80048; 80053; 80061; 81003; 81241; 83036; 83605; 83690; 83735; 84100; 84443; 85025; 85300; 85303; 85306; 85610; 85730; 87635; A9270; C9113; J1644; J1650; J2060; J2270; J2405; J7120; Q9967; 99285; U0002